=== PATIENT | female | born 1995 | race Caucasian/White ===

== ENCOUNTER 2016-04-02 07:26 | Inpatient (IN) | payer OTHER ==
--- NOTE | 2016-04-02 10:11 | P.HPOB ---
History of Present Illness H&P Date: 04/02/16 Chief Complaint: regular uterine contractions This is a 20-year-old white female 1 para 0 EDC 04/09/2016 at 39 weeks gestation patient presents with regular contractions since early this morning. She denies fluid leakage or vaginal bleeding. Fetus is been active throughout the . Past medical history significant for asthma. Current medications albuterol inhaler as needed, vitamin daily. ALLERGIES include Bactrim DS to which reports a rash, penicillin to which reports a childhood reaction, unknown. Social history patient is , she has never been a smoker, she denies alcohol or drug use. 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 Family history essentially unremarkable. history: Group B strep cultures negative, but type A positive, rubella status immune. One-hour Glucola 96. Gonorrhea and chlamydia cultures, HIV testing, hepatitis B surface antigen, urine screen, VDRL all negative. On exam this is a pleasant white female, 5 foot 3 inches, 165 pounds, vital signs are stable and she is afebrile. The general physical exam is within normal limits. The chest is clear in all smith. The extremities reveal no edema. The cervix is 6 cm dilated, 90% effaced, -1 station. Artificial amniorrhexis reveals clear fluid. heart rate is in the 140s with frequent accelerations, consistent with reactive NST. Uterine contractions are occurring spontaneously approximately every 4-5 minutes apart of moderate intensity. Impression: 39 week intrauterine , active spontaneous labor. All signs reassuring. Plan: Close maternal and surveillance. Consider oxytocin augmentation pending clinical progress. Patient has been counseled as to her options for analgesia. Anticipate normal spontaneous vaginal delivery. Review of Systems All systems: negative Past Medical History Past Medical History: Asthma History of Any Multi-Drug Resistant Organisms: None Reported Past Surgical History: No Surgical Hx Reported Past Psychological History: No Psychological Hx Reported Smoking Status: Never smoker Past Alcohol Use History: None Reported Past Drug Use History: None Reported Medications and Allergies Home Medications and Allergies Comment(s): albuterol inhaler prn Home Medications Medication Instructions Recorded Confirmed Type [id number] Acid 1 cap PO DAILY 04/02/16 04/02/16 History [-U Capsule] Allergies Allergy/AdvReac Type Severity Reaction Status Date / Time Penicillins Allergy Rash/Hives Verified 04/02/16 07:42 sulfamethoxazole Allergy Rash/Hives Verified 04/02/16 07:42 [From Bactrim] trimethoprim [From Bactrim] Allergy Rash/Hives Verified 04/02/16 07:42 Exam - Vital Signs Vital signs: Intake and Output 04/01/16 04/02/16 04/02/16 22:59 06:59 14:59 Other: Weight 76.204 kg Patient Weight 04/03/16 06:59 Weight 76.204 kg see dictatation Assessment and Plan Plan: Admit. Close maternal and surveillance. Anticipate . Time with Patient: Less than 30
[2016-04-02] MEDS ORDERED: OXYTOCIN 10 UNIT/ML 1 ML VIAL IM PRN (10:17)
[2016-04-02] MEDS ORDERED: CARBOPROST TROMETHAMINE 250 MCG/ML 1 ML AMP IM PRN (10:17)
[2016-04-02] MEDS ORDERED: TERBUTALINE 1 MG/ML VIAL SQ PRN (10:17)
[2016-04-02] MEDS ORDERED: LIDOCAINE 1% (PF) 10 MG/ML (30 ML SDV) SQ PRN (10:17)
[2016-04-02 10:38] LABS: Basophils % (A) 0 %; CH 30.5; CHCM 33.3; Eosinophils % (A) 0 %; HDW 2.35; Luc # (Auto) 0.19; Luc % (Auto) 1; Lymphocytes # (A) 1.6 k/uL (1.0-4.8); Lymphocytes % (A) 9 %; MCH 29.8 pg (25.0-35.0); MCHC 32.4 g/dL (31.0-37.0); Mean Platelet Volume 10.5; Monocytes # (A) 0.6 k/uL (0-1.0); Monocytes % (A) 4 %; Neutrophils # (A) 15.2 k/uL (1.3-7.7); Neutrophils % (A) 86 %; RBC 4.35 m/uL (3.80-5.40); RDW 13.4 % (11.5-15.5); WBC 17.7 k/uL (3.8-10.6); WBC (Perox) 17.75
[2016-04-02 11:48] VITALS: BMI 29.2
[2016-04-02] MEDS ORDERED: diphenhydrAMINE ELIXIR 25 MG/10 ML CUP PO PRN (12:32)
[2016-04-02] MEDS ORDERED: diphenhydrAMINE 25 MG CAP PO PRN (12:32)
[2016-04-02] MEDS ORDERED: HYDROCORTISONE 2.5% RECTAL CREAM 30 GM TUBE RECTAL PRN (12:32)
[2016-04-02] MEDS ORDERED: diphenhydrAMINE 50 MG/ML 1 ML VIAL IVP PRN ×2 (12:32)
[2016-04-02] MEDS ORDERED: BENZOCAINE/MENTHOL SPRAY 1 GM/SPRAY AEROSOL TOPICAL PRN (12:32)
[2016-04-02] MEDS ORDERED: diphenhydrAMINE 50 MG CAP PO PRN (12:32)
[2016-04-02] MEDS ORDERED: ZOLPIDEM 5 MG TAB PO PRN (12:32)
[2016-04-02] MEDS ORDERED: SIMETHICONE 80 MG CHEWABLE PO PRN (12:32)
[2016-04-02] MEDS ORDERED: IBUPROFEN 600 MG TAB PO PRN (12:32)
[2016-04-02] MEDS ORDERED: WITCH HAZEL 1 EACH MED..PAD TOPICAL PRN (12:32)
[2016-04-02] MEDS ORDERED: LANOLIN CREAM 5 GM TUBE TOPICAL PRN (12:32)
--- NOTE | 2016-04-02 12:32 | P.PROBDLV ---
Vaginal Delivery Note - . Vaginal Delivery Note: This is a 20-year-old white female 1 para 0 EDC 04/09/2016 at 39 weeks gestation. Patient presented in early spontaneous labor earlier today. Artificial amniorrhexis revealed clear fluid. is unremarkable, rubella status immune, please see my dictated history and physical for details. Patient progressed well through the first stage of labor. She was offered but declined any analgesia. She became completely dilated at 1136 hrs. and began the second stage of labor at that time. Different maternal positions were employed in the second phase of labor for occasional runs of decelerations. Excellent progress was made. Oxygen was placed per facemask. Ultimately the perineal body was prepped and draped in the usual sterile fashion. With excellent maternal effort the infant's head delivered occiput anterior and he restituted accordingly. There was no nuchal cord noted. The oropharynx, nasopharynx, and external nares were all bulb suctioned on the perineal body. The left or anterior shoulder was gently delivered from underneath the pubic symphysis. Patient was officially delivered of a liveborn male infant at 1211 hrs. scores were 9 and 9 at one and 5 minutes respectively. Infant weighed 3470 g, or 7 lbs. 11 oz., length was 21.5 inches. The placenta delivered spontaneously, it was inspected and noted to be intact with trivascular cord at 1214 hrs. Uterus was massaged, firm and in the midline. Inspection of the cervix, vagina , perineum and periurethral areas along with perirectal areas revealed a small right labial laceration. This is injected with lidocaine and repaired in the usual fashion using 3-0 Vicryl suture in a running manner. Estimated blood loss 350 mL's. Patient and family were allowed to begin the bonding experience in the LDR. They are requesting circumcision further infant son.
[2016-04-02] MEDS: OXYTOCIN 30 UNITS/500 ML NS 30 UNIT in SALINE 1 500ML.BAG IV SCH ×3 (12:36→21:22)
[2016-04-02] MEDS: LACTATED RINGERS 1,000 ML IV SCH ×4 (12:36→21:20)
[2016-04-02] MEDS: Acetaminophen-Codeine 300-30mg TAB PO PRN ×2 (14:48→17:55)
[2016-04-02 15:04] LABS: CH 30.5; CHCM 33.1; HCT 32.9 % (34.0-46.0); HDW 2.36; HGB 10.7 gm/dL (11.4-16.0); MCHC 32.5 g/dL (31.0-37.0); MCV 92.4 fL (80.0-100.0); Mean Platelet Volume 10.2; RBC 3.56 m/uL (3.80-5.40); RDW 13.6 % (11.5-15.5); WBC (Perox) 38.29
[2016-04-02] MEDS ORDERED: BUTORPHANOL 1 MG/ML 1 ML VIAL IV PRN (15:07)
[2016-04-02 15:13] LABS: WBC 35.7 k/uL (3.8-10.6)
[2016-04-02] MEDS: METHYLERGONOVINE 0.2 MG/ML 1 ML AMP IM PRN (15:16)
[2016-04-02 15:21] LABS: Add Differential Manual Differential
[2016-04-02 15:24] LABS: Manual Review Performed; Nucleated Red Blood Cells 0 /100 WBC (0-0); RBC Morphology Normal; Total Cells Counted 200
[2016-04-02] MEDS ORDERED: KETAMINE 10 MG/ML 20 ML VIAL ONE (15:31)
[2016-04-02] MEDS ORDERED: MIDAZOLAM 2 MG/2 ML VIAL ONE (15:31)
--- NOTE | 2016-04-02 16:11 | P.PCN ---
Date of Procedure: 04/02/16 Preoperative Diagnosis: bleeding Postoperative Diagnosis: Retained products of conception, left vaginal sidewall laceration. Procedure(s) Performed: Examination under anesthesia, manual exploration of the uterus, repair left lateral vaginal laceration Surgeon: Lovely Kennedy Estimated Blood Loss (ml): 1,200 IV fluids (ml): 1,000 Urine output (ml): 20 Pathology: other (Retained products of conception) Condition: stable Disposition: observation Description of Procedure: I was called to the bedside by attending nurses for increased vaginal bleeding after delivery. At the bedside, manual exploration revealed a small cotyledon of placenta and the uterus is evacuated for approximately 1000 mL of blood. However, upon inspecting the vaginal vault, I was suspicious of a left vaginal sidewall laceration secondary to continued bleeding. Therefore the decision was made to go back to the operating room for better exposure, sterile technique , and repair. Patient brought to the operating suite. IV pain medications are given per the anesthesia staff. Patient is placed in the dorsal lithotomy position, the perineal body is prepped and draped in usual sterile fashion. The bladder is drained for approximately 20 mL of clear yellow urine. With better exposure, there is indeed a high left vaginal sidewall laceration identified. 3-0 Vicryl sutures used in a running locking fashion to repair this defect. Uterus is once again explored and noted to be empty of any remaining blood clots or tissue. Patient tolerates the procedure well. 2 g of Ancef were given. Patient is brought back to the recovery area in stable condition with blood pressure 90/45, pulse 120. All sponge needle and enhancement counts are correct. Hemoglobin will be repeated in the morning. Hemoglobin postdelivery after the 1000 mL of the evacuation was 10.7.
[2016-04-02 18:40] LABS: Basophils % (A) 0 %; CH 29.9; CHCM 31.2; Eosinophils % (A) 0 %; HDW 2.39; Hypochromasia Slight; Luc % (Auto) 1; Lymphocytes # (A) 1.5 k/uL (1.0-4.8); Lymphocytes % (A) 4 %; MCH 30.2 pg (25.0-35.0); MCHC 31.5 g/dL (31.0-37.0); MCV 96.1 fL (80.0-100.0); Mean Platelet Volume 9.8; Monocytes # (A) 0.8 k/uL (0-1.0); Monocytes % (A) 2 %; Neutrophils # (A) 35.9 k/uL (1.3-7.7); Neutrophils % (A) 93 %; RBC 2.29 m/uL (3.80-5.40); RDW 13.5 % (11.5-15.5); WBC (Perox) 41.81
[2016-04-02 18:44] LABS: WBC 38.6 k/uL (3.8-10.6)
[2016-04-02 18:45] LABS: HGB 6.9 gm/dL (11.4-16.0)
[2016-04-02 18:52] LABS: ALT 47 U/L (9-52); AST 48 U/L (14-36); Alkaline Phosphatase 104 U/L (38-126); Anion Gap 11 mmol/L; Blood Urea Nitrogen 14 mg/dL (7-17); Calcium 8.2 mg/dL (8.4-10.2); Carbon Dioxide 15 mmol/L (22-30); Chloride 108 mmol/L (98-107); Glucose 195 mg/dL (74-99); Non-African American GFR(MDRD) >60 (>60 ml/min/1.73 sqM); Potassium 4.5 mmol/L (3.5-5.1); Sodium 134 mmol/L (137-145); Total Bilirubin 0.2 mg/dL (0.2-1.3); Total Protein 4.4 g/dL (6.3-8.2)
[2016-04-02] MEDS ORDERED: LACTATED RINGERS 1,000 ML IV ONE (19:15)
--- NOTE | 2016-04-02 19:15 | P.PN ---
Subjective Principal diagnosis: Called to the bedside, patient passed out when trying to sit up. Objective - Vital Signs Vital signs: Vital Signs Temp 97.9 F 04/02/16 13:31 Pulse 131 H 04/02/16 18:45 Resp 20 04/02/16 18:45 BP 107/54 04/02/16 18:45 Pulse Ox Intake & Output 04/02/16 04/02/16 04/03/16 06:59 18:59 06:59 Intake Total 1000 Output Total 350 Balance 650 Weight 74.843 kg Intake: IV 1000 Lactated Ringers 1,000 ml 1000 @ 125 mls/hr IV .Q8H ASHWINI Rx#:[id number] Output: Urine 0 Estimated Blood Loss 350 - Constitutional General appearance: Present: average body habitus, cooperative - EENT Eyes: Present: PERRLA ENT: Present: hearing grossly normal - Respiratory Respiratory: bilateral: CTA - Cardiovascular Rhythm: regular - Genitourinary Genitourinary Comment(s): uterus firm, midline, 18-16 week size. Expressed for 200cc clots. No active bleeding. - Integumentary Integumentary: Present: pale - Neurologic Neurologic: Present: CNII-XII intact - Musculoskeletal Musculoskeletal: Present: generalized weakness - Psychiatric Psychiatric: Present: A&O x's 3, appropriate affect, intact judgment & insight - Labs CBC & Chem 7: 04/02/16 18:29 04/02/16 18:29 Labs: Abnormal Lab Results - Last 24 Hours (Table) 04/02/16 04/02/16 04/02/16 Range/Units 10:15 14:54 18:29 WBC 17.7 H 35.7 H* 38.6 H* (3.8-10.6) k/uL RBC 3.56 L 2.29 L (3.80-5.40) m/uL Hgb 10.7 L 6.9 L* D (11.4-16.0) gm/dL Hct 32.9 L 22.0 L (34.0-46.0) % Neutrophils # 15.2 H 35.9 H (1.3-7.7) k/uL Neutrophils # (Manual) 33.4 H (1.3-7.7) k/uL Lymphocytes # (Manual) 0.9 L (1.0-4.8) k/uL Monocytes # (Manual) 1.4 H (0-1.0) k/uL Sodium (137-145) mmol/L Chloride (98-107) mmol/L Carbon Dioxide (22-30) mmol/L Glucose (74-99) mg/dL Calcium (8.4-10.2) mg/dL AST (14-36) U/L Total Protein (6.3-8.2) g/dL Albumin (3.5-5.0) g/dL 04/02/16 Range/Units 18:29 WBC (3.8-10.6) k/uL RBC (3.80-5.40) m/uL Hgb (11.4-16.0) gm/dL Hct (34.0-46.0) % Neutrophils # (1.3-7.7) k/uL Neutrophils # (Manual) (1.3-7.7) k/uL Lymphocytes # (Manual) (1.0-4.8) k/uL Monocytes # (Manual) (0-1.0) k/uL Sodium 134 L (137-145) mmol/L Chloride 108 H (98-107) mmol/L Carbon Dioxide 15 L (22-30) mmol/L Glucose 195 H (74-99) mg/dL Calcium 8.2 L (8.4-10.2) mg/dL AST 48 H (14-36) U/L Total Protein 4.4 L (6.3-8.2) g/dL Albumin 2.1 L (3.5-5.0) g/dL Assessment and Plan Plan: Hypovolemia, symptomatic. Discussed with pt and family, will given 2 units PRBC , will check D-dimer, fibrinogen, PT, PTT, continue aggressive fluid replacement , place stephenson for better I's and O's. Discussed with anesthesia, present.
[2016-04-02 19:47] LABS: INR 1.1 (<1.1); Prothrombin Time 10.7 sec (9.0-12.0)
[2016-04-02 19:48] LABS: Partial Thromboplastin Time 25.8 sec (22.0-30.0)
[2016-04-02] MEDS: KETOROLAC 30 MG/ML 1 ML VIAL IVP PRN (20:30)
[2016-04-02] MEDS: SENNOSIDES-DOCUSATE SODIUM 1 EACH TAB PO SCH (21:19)
[2016-04-02] MEDS ORDERED: ALBUMIN HUMAN 5% 500 ML in EMPTY BAG 1 BAG IVPB STA (22:17)
[2016-04-02] MEDS ORDERED: NALOXONE 0.4 MG/ML 1 ML VIAL IV PRN (23:07)
[2016-04-02] MEDS ORDERED: SODIUM CHLORIDE 0.9% 2,000 ML IV ONE (23:16)
[2016-04-02 23:24] LABS: Glucose,Whole Blood 172 mg/dL (75-99)
[2016-04-03] MEDS ORDERED: KETOROLAC 30 MG/ML 1 ML VIAL IVP SCH
[2016-04-03] MEDS: Acetaminophen-Codeine 300-30mg TAB PO PRN (00:30)
[2016-04-03] MEDS: OXYTOCIN 30 UNITS/500 ML NS 30 UNIT in SALINE 1 500ML.BAG IV SCH ×5 (01:07→15:31)
[2016-04-03 02:18] LABS: Appearance,Urine Cloudy (Clear); Bilirubin,Urine Negative (Negative); Glucose,Urine (UA) Trace (Negative); Granular Casts,Urine 14 /lpf (0); Ketones,Urine Trace (Negative); Leukocyte Esterase,Urine Negative (Negative); Mucus,Urine Rare /hpf; Nitrite,Urine Negative (Negative); Particle Count 7658; Protein,Urine 1+ (Negative); RBC,Urine >182 /hpf (0-5); Specific Gravity,Urine 1.025 (1.001-1.035); Squamous Epithelial Cell,Urine <1 /hpf (0-4); UA Billing (MACRO vs. MICRO) MICRO; Urobilinogen,Urine <2.0 mg/dL (<2.0); WBC,Urine 88 /hpf (0-5)
[2016-04-03] MEDS: KETOROLAC 30 MG/ML 1 ML VIAL IVP PRN (03:19)
[2016-04-03 04:59] LABS: Basophils % (A) 0 %; CH 31.9; CHCM 34.9; Eosinophils % (A) 0 %; HCT 21.7 % (34.0-46.0); HDW 2.91; HGB 7.4 gm/dL (11.4-16.0); Luc # (Auto) 0.31; Luc % (Auto) 1; Lymphocytes % (A) 9 %; MCH 31.5 pg (25.0-35.0); MCHC 34.2 g/dL (31.0-37.0); Mean Platelet Volume 9.4; Monocytes # (A) 1.5 k/uL (0-1.0); Monocytes % (A) 7 %; Neutrophils # (A) 18.2 k/uL (1.3-7.7); Neutrophils % (A) 83 %; RBC 2.36 m/uL (3.80-5.40); RDW 14.3 % (11.5-15.5)
[2016-04-03 05:12] LABS: Anion Gap 6 mmol/L; Blood Urea Nitrogen 16 mg/dL (7-17); Calcium 7.3 mg/dL (8.4-10.2); Carbon Dioxide 18 mmol/L (22-30); Chloride 110 mmol/L (98-107); Glucose 101 mg/dL (74-99); Magnesium 1.3 mg/dL (1.6-2.3); Non-African American GFR(MDRD) >60 (>60 ml/min/1.73 sqM); Phosphorous 3.3 mg/dL (2.5-4.5); Potassium 5.1 mmol/L (3.5-5.1); Sodium 134 mmol/L (137-145)
[2016-04-03 05:28] LABS: Manual Review Performed
[2016-04-03] MEDS ORDERED: Magnesium Replacement Protocol 1 EACH MISC MISCELLANE PRN (06:46)
[2016-04-03 07:36] LABS: INR 1.2 (<1.1); Partial Thromboplastin Time 31.3 sec (22.0-30.0); Prothrombin Time 11.5 sec (9.0-12.0)
--- NOTE | 2016-04-03 07:55 | US ---
EXAMINATION TYPE: US pelvic complete DATE OF EXAM: 04/03/2016 7:36 AM COMPARISON: NONE CLINICAL HISTORY: Retained Products. Full term vaginal delivery at 39 weeks on 04/02/16, pt having heav y vaginal bleeding with clots, currently in ICU TECHNIQUE: Transabdominal (TA) EXAM MEASUREMENTS: Uterus: 24.8 x 7.9 x 12.1 cm Endometrial Stripe: Normal endometrial measurement not visible Right Ovary: 2.5 x 1.6 x 2.1 cm Findings: 1. Uterus: Enlarged, post uterus/ two large collections within uterus 1)- cystic collection a t body of uterus= 13.9 x 5.7 x 7.9 cm and 2)- solid collection at JOHN= 10.1 x 7.0 x 7.5 cm/ No eviden ce of increased blood flow in these areas to suggest retained products 2. Endometrium: Normal endometrial lining not visualized at this time 3. Right Ovary: wnl 4. Left Ovary: unable to visualize at this time 5. Bilateral Adnexa: wnl 6. Posterior cul-de-sac: wnl Results given to Dr Kennedy at time of exam IMPRESSION: uterus as noted above without definite retained products of conception.
[2016-04-03] MEDS: METHYLERGONOVINE 0.2 MG/ML 1 ML AMP IM PRN (08:07)
[2016-04-03] MEDS: MAGNESIUM SULFATE-D5W PMX 1 GM in DEXTROSE/WATER 1 100ML.BAG IVPB SCH ×3 (08:08→11:17)
--- NOTE | 2016-04-03 08:49 | P.PN ---
Subjective Principal diagnosis: Significant hemorrhage with secondary hypovolemia. Patient is passing flatus. She feels greatly improved. She denies any complaints other than bilateral upper extremity pain and tingling, consistent with history of carpal tunnel syndrome. Objective - Vital Signs Vital signs: Vital Signs Temp 98.3 F 04/03/16 07:30 Pulse 104 H 04/03/16 08:00 Resp 17 04/03/16 08:00 BP 141/51 04/03/16 08:00 Pulse Ox 100 04/03/16 08:00 Intake & Output 04/02/16 04/03/16 04/03/16 18:59 06:59 18:59 Intake Total 1000 7690 490 Output Total 350 945 300 Balance 650 6745 190 Weight 74.843 kg 77.1 kg Intake: IV 1000 4400 250 Albumin Human 5% 500 ml 500 In Empty Bag 1 bag @ 250 mls/hr IVPB ONCE STA Rx#: [id number] Lactated Ringers 1,000 ml 1000 1900 250 @ 125 mls/hr IV .Q8H ASHWINI Rx#:[id number] Sodium Chloride 0.9% 2, 2000 000 ml @ 999 mls/hr IV . Q2H1M ONE Rx#:[id number] Intake, IV Titration 950 Amount Lactated Ringers 1,000 ml 950 @ 999 mls/hr IV .Q1H1M ONE Rx#:[id number] Oral 480 240 Blood Product 1860 Rc As-1 Unit 310 [id number] Rc As-1 Unit 310 [id number] Rc As-1 Unit 310 [id number] Rc As-1 Unit 310 [id number] Output: Urine 0 945 300 Estimated Blood Loss 350 Other: Voiding Method Indwelling Catheter - Exam Fundus firm and in the midline, symmetric, nontender. Approximate 2 cm below the umbilicus. Breasts are not engorged. - Constitutional General appearance: Present: average body habitus, cooperative - EENT Eyes: Present: PERRLA ENT: Present: hearing grossly normal - Neck Neck: Present: normal ROM Thyroid: bilateral: normal size - Respiratory Respiratory: bilateral: CTA - Cardiovascular Rhythm: regular - Gastrointestinal General gastrointestinal: Present: normal bowel sounds - Genitourinary Genitourinary Comment(s): Exam of the labia revealed them to be edematous, no sign of hematoma. Moderate lochia rubra. Uterus is expressed for a blood clot of approximately 400 mL's. - Integumentary Integumentary: Present: normal - Neurologic Neurologic: Present: CNII-XII intact - Psychiatric Psychiatric: Present: A&O x's 3, appropriate affect, intact judgment & insight - Labs CBC & Chem 7: 04/03/16 04:44 04/03/16 04:44 Labs: Abnormal Lab Results - Last 24 Hours (Table) 04/02/16 04/02/16 04/02/16 Range/Units 10:15 14:54 18:29 WBC 17.7 H 35.7 H* 38.6 H* (3.8-10.6) k/uL RBC 3.56 L 2.29 L (3.80-5.40) m/uL Hgb 10.7 L 6.9 L* D (11.4-16.0) gm/dL Hct 32.9 L 22.0 L (34.0-46.0) % Plt Count (150-450) k/uL Neutrophils # 15.2 H 35.9 H (1.3-7.7) k/uL Neutrophils # (Manual) 33.4 H (1.3-7.7) k/uL Lymphocytes # (Manual) 0.9 L (1.0-4.8) k/uL Monocytes # (0-1.0) k/uL Monocytes # (Manual) 1.4 H (0-1.0) k/uL APTT (22.0-30.0) sec D-Dimer (<0.60) mg/L FEU Sodium (137-145) mmol/L Chloride (98-107) mmol/L Carbon Dioxide (22-30) mmol/L Glucose (74-99) mg/dL POC Glucose (mg/dL) (75-99) mg/dL Calcium (8.4-10.2) mg/dL Magnesium (1.6-2.3) mg/dL AST (14-36) U/L Total Protein (6.3-8.2) g/dL Albumin (3.5-5.0) g/dL Urine Appearance (Clear) Urine Protein (Negative) Urine Glucose (UA) (Negative) Urine Ketones (Negative) Urine Blood (Negative) Urine RBC (0-5) /hpf Urine WBC (0-5) /hpf Hyaline Casts (0-2) /lpf Urine Mucus (None) /hpf Crossmatch 04/02/16 04/02/16 04/02/16 Range/Units 18:29 18:29 19:18 WBC (3.8-10.6) k/uL RBC (3.80-5.40) m/uL Hgb (11.4-16.0) gm/dL Hct (34.0-46.0) % Plt Count (150-450) k/uL Neutrophils # (1.3-7.7) k/uL Neutrophils # (Manual) (1.3-7.7) k/uL Lymphocytes # (Manual) (1.0-4.8) k/uL Monocytes # (0-1.0) k/uL Monocytes # (Manual) (0-1.0) k/uL APTT (22.0-30.0) sec D-Dimer 2.82 H (<0.60) mg/L FEU Sodium 134 L (137-145) mmol/L Chloride 108 H (98-107) mmol/L Carbon Dioxide 15 L (22-30) mmol/L Glucose 195 H (74-99) mg/dL POC Glucose (mg/dL) (75-99) mg/dL Calcium 8.2 L (8.4-10.2) mg/dL Magnesium (1.6-2.3) mg/dL AST 48 H (14-36) U/L Total Protein 4.4 L (6.3-8.2) g/dL Albumin 2.1 L (3.5-5.0) g/dL Urine Appearance (Clear) Urine Protein (Negative) Urine Glucose (UA) (Negative) Urine Ketones (Negative) Urine Blood (Negative) Urine RBC (0-5) /hpf Urine WBC (0-5) /hpf Hyaline Casts (0-2) /lpf Urine Mucus (None) /hpf Crossmatch See Detail 04/02/16 04/03/16 04/03/16 Range/Units 23:21 00:50 04:44 WBC 22.0 H (3.8-10.6) k/uL RBC 2.36 L (3.80-5.40) m/uL Hgb 7.4 L (11.4-16.0) gm/dL Hct 21.7 L (34.0-46.0) % Plt Count 71 L D (150-450) k/uL Neutrophils # 18.2 H (1.3-7.7) k/uL Neutrophils # (Manual) (1.3-7.7) k/uL Lymphocytes # (Manual) (1.0-4.8) k/uL Monocytes # 1.5 H (0-1.0) k/uL Monocytes # (Manual) (0-1.0) k/uL APTT (22.0-30.0) sec D-Dimer (<0.60) mg/L FEU Sodium (137-145) mmol/L Chloride (98-107) mmol/L Carbon Dioxide (22-30) mmol/L Glucose (74-99) mg/dL POC Glucose (mg/dL) 172 H (75-99) mg/dL Calcium (8.4-10.2) mg/dL Magnesium (1.6-2.3) mg/dL AST (14-36) U/L Total Protein (6.3-8.2) g/dL Albumin (3.5-5.0) g/dL Urine Appearance Cloudy H (Clear) Urine Protein 1+ H (Negative) Urine Glucose (UA) Trace H (Negative) Urine Ketones Trace H (Negative) Urine Blood Large H (Negative) Urine RBC >182 H (0-5) /hpf Urine WBC 88 H (0-5) /hpf Hyaline Casts 18 H (0-2) /lpf Urine Mucus Rare H (None) /hpf Crossmatch 04/03/16 04/03/16 Range/Units 04:44 04:44 WBC (3.8-10.6) k/uL RBC (3.80-5.40) m/uL Hgb (11.4-16.0) gm/dL Hct (34.0-46.0) % Plt Count (150-450) k/uL Neutrophils # (1.3-7.7) k/uL Neutrophils # (Manual) (1.3-7.7) k/uL Lymphocytes # (Manual) (1.0-4.8) k/uL Monocytes # (0-1.0) k/uL Monocytes # (Manual) (0-1.0) k/uL APTT 31.3 H (22.0-30.0) sec D-Dimer 0.99 H (<0.60) mg/L FEU Sodium 134 L (137-145) mmol/L Chloride 110 H (98-107) mmol/L Carbon Dioxide 18 L (22-30) mmol/L Glucose 101 H (74-99) mg/dL POC Glucose (mg/dL) (75-99) mg/dL Calcium 7.3 L (8.4-10.2) mg/dL Magnesium 1.3 L (1.6-2.3) mg/dL AST (14-36) U/L Total Protein (6.3-8.2) g/dL Albumin (3.5-5.0) g/dL Urine Appearance (Clear) Urine Protein (Negative) Urine Glucose (UA) (Negative) Urine Ketones (Negative) Urine Blood (Negative) Urine RBC (0-5) /hpf Urine WBC (0-5) /hpf Hyaline Casts (0-2) /lpf Urine Mucus (None) /hpf Crossmatch Assessment and Plan Plan: 2 additional units of packed red blood cells will be given at this time. Plan is to advance diet later this morning, advance activity. Eventual transfer back to mother baby care unit for continued care. Consideration for 2 units of fresh frozen plasma, we'll discuss further with Dr. Sigala. Methergine IM has been given 1 at this time to aid in uterine tone. Continue close maternal surveillance. Circumcision has been performed. Time with Patient: Greater than 30
--- NOTE | 2016-04-03 09:42 | P.CNPUL ---
History of Present Illness Consult date: 04/03/16 Chief complaint: Hemorrhagic shock History of present illness: 20-year-old young female patient, 39 week of gestation, presented with spontaneous labor. Her was essentially unremarkable. The patient was delivered and following her delivery the patient had increased vaginal bleeding. Dr. Kennedy was called to the scene and the patient had manual expiration and she revealed to cotyledon of placenta and the uterus was evacuated in approximately 1.2 L of blood was lost during the process. Upon this patient of the vaginal vault, there was a left vaginal side wall laceration contributing to the bleeding. The patient was taken to the operating room and she underwent repair under sterile techniques. Postop, the patient went into a shock state with the patient became profoundly tachycardic with a heart rate in the 170s to 180, sinus and her hemoglobin dropped as low as 6.9. She was resuscitated aggressively with IV fluids and pressors. The patient received amira in the form of albumin, 500 ML's and she also received 2 L of 0.9 normal saline and she also received a total of 4 units of packed RBC. Morning hemoglobin is up to 7.4. Hemodynamics is better. She retains a decent blood pressure at this point and her heart rate is dropped down to 105. She is producing urine output and order of 200-300 mL an hour. She did have some residual bleeding from her vaginal and based on that she was again seen by Dr. Ordaz this morning and she had manual evacuation of the clots, given Methergine IM, and a pelvic ultrasound that was done before the manual evacuation showed a large uterus with 2 large collections within the uterus and no evidence of any increased blood flow in the areas to suggest retained products. Normal endometrial lining was seen. The rest of the findings were essentially stable. At this point in time, hemoglobin is at 7.4, platelet count is at 71,000 and the coagulation profile is within normal limits. The patient has no specific complaints. No chest pain. No nausea or vomiting. She is not lactating yet. She has delivered a healthy boy.. Review of Systems As above Past Medical History Past Medical History: Asthma History of Any Multi-Drug Resistant Organisms: None Reported Past Surgical History: No Surgical Hx Reported Past Psychological History: No Psychological Hx Reported Smoking Status: Never smoker Past Alcohol Use History: None Reported Past Drug Use History: None Reported - Past Family History Father Family Medical History: No Reported History Medications and Allergies Home Medications Medication Instructions Recorded Confirmed Type Vdw-Flnl-Dmtau Acid 1 cap PO DAILY 04/02/16 04/02/16 History [-U Capsule] Allergies Allergy/AdvReac Type Severity Reaction Status Date / Time Penicillins Allergy Rash/Hives Verified 04/02/16 07:42 sulfamethoxazole Allergy Rash/Hives Verified 04/02/16 07:42 [From Bactrim] trimethoprim [From Bactrim] Allergy Rash/Hives Verified 04/02/16 07:42 Physical Exam Vitals: Vital Signs Temp Pulse Pulse Resp BP BP Pulse Ox 04/03/16 08:00 104 H 17 141/51 100 04/03/16 07:30 98.3 F 106 H 14 122/44 100 04/03/16 07:00 108 H 14 134/50 100 04/03/16 06:30 102 H 15 129/62 100 04/03/16 06:00 110 H 13 129/62 100 04/03/16 05:30 95 14 154/75 100 04/03/16 05:00 108 H 17 129/54 100 04/03/16 04:30 98.0 F 91 15 135/59 100 04/03/16 04:04 98.6 F 99 14 135/53 100 04/03/16 04:00 98 15 141/65 100 04/03/16 03:30 103 H 17 151/67 100 04/03/16 03:00 124 H 19 138/68 100 04/03/16 02:30 137 H 19 128/55 100 04/03/16 02:25 97.5 F L 122 H 15 131/59 100 04/03/16 02:15 98.5 F 119 H 16 128/55 100 04/03/16 02:00 117 H 19 130/65 100 04/03/16 01:30 136 H 30 H 120/82 100 04/03/16 01:29 97.7 F 126 H 16 04/03/16 01:00 97.7 F 127 H 20 115/78 100 04/03/16 00:30 141 H 127/71 100 04/03/16 00:00 147 H 20 137/82 100 04/02/16 23:57 98.2 F 137 H 24 115/78 100 04/02/16 23:30 156 H 20 118/62 100 04/02/16 23:13 98.2 F 141 H 20 04/02/16 23:00 98.3 F 157 H 20 99 04/02/16 22:56 89 L 04/02/16 22:43 98.7 F 162 H 18 113/55 99 04/02/16 22:13 98.7 F 153 H 18 109/55 04/02/16 22:03 98.7 F 155 H 18 111/52 94 L 04/02/16 21:58 98.3 F 146 H 20 137/87 04/02/16 20:59 142 H 18 04/02/16 20:53 97.8 F 144 H 18 94/50 100 04/02/16 20:23 98.1 F 146 H 18 77/40 100 04/02/16 20:13 98.1 F 146 H 18 106/53 99 04/02/16 18:45 129 H 18 111/59 100 04/02/16 18:15 137 H 20 84/53 04/02/16 18:00 122 H 18 84/51 100 04/02/16 17:15 105 H 18 95/46 100 04/02/16 17:00 95.2 F L 105 H 18 86/52 100 04/02/16 16:45 113 H 18 81/51 99 04/02/16 16:30 114 H 18 84/50 98 04/02/16 16:15 124 H 20 04/02/16 16:00 95.5 F L 118 H 18 88/53 97 04/02/16 14:01 125 H 16 115/64 04/02/16 13:31 97.9 F 108 H 16 127/64 04/02/16 13:16 95 16 129/81 04/02/16 13:01 79 16 130/76 04/02/16 12:46 86 16 129/79 04/02/16 12:31 69 16 128/61 04/02/16 10:15 98.3 F 85 16 138/82 Intake and Output 04/02/16 04/03/16 04/03/16 22:59 06:59 14:59 Intake Total 3160 5530 490 Output Total 150 795 300 Balance 3010 4735 190 Intake: IV 1900 3500 250 Albumin Human 5% 500 ml 500 In Empty Bag 1 bag @ 250 mls/hr IVPB ONCE STA Rx#: [id number] Lactated Ringers 1,000 ml 1900 1000 250 @ 125 mls/hr IV .Q8H ASHWINI Rx#:[id number] Sodium Chloride 0.9% 2, 2000 000 ml @ 999 mls/hr IV . Q2H1M ONE Rx#:[id number] Intake, IV Titration 950 Amount Lactated Ringers 1,000 ml 950 @ 999 mls/hr IV .Q1H1M ONE Rx#:[id number] Oral 480 240 Blood Product 310 1550 Rc As-1 Unit 0 310 [id number] Rc As-1 Unit 310 [id number] Rc As-1 Unit 310 [id number] Rc As-1 Unit 310 [id number] Output: Urine 150 795 300 Other: Voiding Method Indwelling Catheter Indwelling Catheter Weight 77.1 kg The patient appeared well nourished and normally developed. Vital signs as documented. Head exam is unremarkable. No scleral icterus or corneal arcus noted. Neck is without jugular venous distension, thyromegaly, or carotid bruits. Carotid upstrokes are brisk bilaterally. Lungs are clear to auscultation and percussion. Cardiac exam reveals the PMI to be normally sized and situated. Rhythm is regular. First and second heart sounds normal. No murmurs, rubs or gallops. Abdominal exam reveals normal bowel sounds, no masses , no organomegaly and no aortic enlargement. Extremities are nonedematous and both femoral and pedal pulses are normal. For the pelvic exam please refer to the examination that was done by Dr. Kennedy Results - Laboratory Findings CBC and BMP: 04/03/16 04:44 04/03/16 04:44 PT/INR, D-dimer PT 11.5 sec (9.0-12.0) 04/03/16 04:44 INR 1.2 (<1.1) 04/03/16 04:44 D-Dimer 0.99 mg/L FEU (<0.60) H 04/03/16 04:44 Abnormal lab findings: Abnormal Labs 04/02/16 04/02/16 04/02/16 10:15 14:54 18:29 WBC 17.7 H 35.7 H* 38.6 H* RBC 3.56 L 2.29 L Hgb 10.7 L 6.9 L* D Hct 32.9 L 22.0 L Plt Count Neutrophils # 15.2 H 35.9 H Neutrophils # (Manual) 33.4 H Lymphocytes # (Manual) 0.9 L Monocytes # Monocytes # (Manual) 1.4 H APTT D-Dimer Sodium Chloride Carbon Dioxide Glucose POC Glucose (mg/dL) Calcium Magnesium AST Total Protein Albumin Urine Appearance Urine Protein Urine Glucose (UA) Urine Ketones Urine Blood Urine RBC Urine WBC Hyaline Casts Urine Mucus Crossmatch 04/02/16 04/02/16 04/02/16 18:29 18:29 19:18 WBC RBC Hgb Hct Plt Count Neutrophils # Neutrophils # (Manual) Lymphocytes # (Manual) Monocytes # Monocytes # (Manual) APTT D-Dimer 2.82 H Sodium 134 L Chloride 108 H Carbon Dioxide 15 L Glucose 195 H POC Glucose (mg/dL) Calcium 8.2 L Magnesium AST 48 H Total Protein 4.4 L Albumin 2.1 L Urine Appearance Urine Protein Urine Glucose (UA) Urine Ketones Urine Blood Urine RBC Urine WBC Hyaline Casts Urine Mucus Crossmatch See Detail 04/02/16 04/03/16 04/03/16 23:21 00:50 04:44 WBC 22.0 H RBC 2.36 L Hgb 7.4 L Hct 21.7 L Plt Count 71 L D Neutrophils # 18.2 H Neutrophils # (Manual) Lymphocytes # (Manual) Monocytes # 1.5 H Monocytes # (Manual) APTT D-Dimer Sodium Chloride Carbon Dioxide Glucose POC Glucose (mg/dL) 172 H Calcium Magnesium AST Total Protein Albumin Urine Appearance Cloudy H Urine Protein 1+ H Urine Glucose (UA) Trace H Urine Ketones Trace H Urine Blood Large H Urine RBC >182 H Urine WBC 88 H Hyaline Casts 18 H Urine Mucus Rare H Crossmatch 04/03/16 04/03/16 04:44 04:44 WBC RBC Hgb Hct Plt Count Neutrophils # Neutrophils # (Manual) Lymphocytes # (Manual) Monocytes # Monocytes # (Manual) APTT 31.3 H D-Dimer 0.99 H Sodium 134 L Chloride 110 H Carbon Dioxide 18 L Glucose 101 H POC Glucose (mg/dL) Calcium 7.3 L Magnesium 1.3 L AST Total Protein Albumin Urine Appearance Urine Protein Urine Glucose (UA) Urine Ketones Urine Blood Urine RBC Urine WBC Hyaline Casts Urine Mucus Crossmatch Assessment and Plan Plan: Assessment 1 bleeding with retained products of conception and left vaginal wall laceration, status post manual expiration of the uterus and removal of retained products in addition to repair of laceration of a left vaginal wall. 2 hemorrhagic shock, stable for now postresuscitation with IV fluids and blood products 3 profound anemia secondary to above, improving and the hemoglobin is up to 7.4 4 evolving thrombocytopenia, consumptive secondary to massive bleeding. Could be also related to transfusions. Correlation profile is within normal limits. No history of any underlying coagulopathy 5 bronchial asthma Plan The patient is an IV fluids with LR at the rate of 1 25 mL an hour. She is receiving an additional 2 units of packed RBC. I will give her 2 units of fresh frozen plasma admission knowing that there is some ongoing oozing from the vagina. The bleeding has been effectively controlled that there is some minimal blood where the vaginal pads are being replaced every 2 hours. We will repeat his CBC other the blood transfusion if the platelet counts are below 50, 000 we'll give the patient a unit of platelet concentrates in addition. She'll be kept in ICU for today. We'll ask if it's possible for this patient to breast feed and this should help with dosing generation and contraction of the uterus. This will be arranged along with the labor and delivery nurses. The patient has been given Methergine. Will work with [employer] in regards to management and care of this patient.
[2016-04-03] MEDS: SENNOSIDES-DOCUSATE SODIUM 1 EACH TAB PO SCH ×2 (11:19→20:20)
[2016-04-03] MEDS: ACETAMINOPHEN TAB 325 MG TAB PO PRN (13:43)
[2016-04-03 16:06] LABS: CH 31.8; CHCM 35.8; HCT 27.2 % (34.0-46.0); HDW 3.26; MCHC 34.5 g/dL (31.0-37.0); MCV 89.6 fL (80.0-100.0); Mean Platelet Volume 9.7; RBC 3.04 m/uL (3.80-5.40); RDW 14.1 % (11.5-15.5); WBC 22.2 k/uL (3.8-10.6)
[2016-04-03 16:15] LABS: HGB 9.4 gm/dL (11.4-16.0)
[2016-04-03 16:21] LABS: Partial Thromboplastin Time 26.3 sec (22.0-30.0); Prothrombin Time 10.3 sec (9.0-12.0)
[2016-04-03] MEDS: LACTATED RINGERS 1,000 ML IV SCH (20:21)
[2016-04-04] MEDS: LACTATED RINGERS 1,000 ML IV SCH ×2 (04:33→10:59)
[2016-04-04 04:54] LABS: Basophils % (A) 0 %; CH 31.6; CHCM 35.3; Eosinophils % (A) 0 %; HCT 23.6 % (34.0-46.0); HDW 3.33; HGB 8.1 gm/dL (11.4-16.0); Luc % (Auto) 1; Lymphocytes % (A) 11 %; MCH 31.2 pg (25.0-35.0); MCHC 34.5 g/dL (31.0-37.0); MCV 90.3 fL (80.0-100.0); Mean Platelet Volume 8.6; Monocytes # (A) 0.7 k/uL (0-1.0); Monocytes % (A) 4 %; Neutrophils # (A) 15.6 k/uL (1.3-7.7); Neutrophils % (A) 84 %; RBC 2.62 m/uL (3.80-5.40); RDW 14.4 % (11.5-15.5); WBC 18.5 k/uL (3.8-10.6)
[2016-04-04 05:15] LABS: Anion Gap 8 mmol/L; Blood Urea Nitrogen 9 mg/dL (7-17); Calcium 7.8 mg/dL (8.4-10.2); Carbon Dioxide 23 mmol/L (22-30); Chloride 110 mmol/L (98-107); Glucose 71 mg/dL (74-99); Magnesium 1.7 mg/dL (1.6-2.3); Non-African American GFR(MDRD) >60 (>60 ml/min/1.73 sqM); Phosphorous 2.8 mg/dL (2.5-4.5); Potassium 3.6 mmol/L (3.5-5.1); Sodium 141 mmol/L (137-145)
[2016-04-04] MEDS ORDERED: Magnesium Replacement Protocol 1 EACH MISC MISCELLANE PRN (05:29)
[2016-04-04] MEDS ORDERED: Potassium Replacement Protocol 1 EACH MISC MISCELLANE PRN (05:29)
[2016-04-04] MEDS ORDERED: POTASSIUM CHLORIDE ER 20 MEQ TAB.ER PO SCH (06:00)
--- NOTE | 2016-04-04 07:55 | P.PN ---
Subjective Principal diagnosis: day #2 Patient is ambulating, passing flatus, has showered, breast-feeding. Denies lightheadedness or dizziness. Scant vaginal flow. Objective - Vital Signs Vital signs: Vital Signs Temp 98.1 F 04/04/16 07:12 Pulse 16 L 04/04/16 07:12 Resp 90 H 04/04/16 07:12 BP 142/56 04/04/16 07:12 Pulse Ox 98 04/04/16 07:00 Intake & Output 04/03/16 04/04/16 04/04/16 18:59 06:59 18:59 Intake Total 2250 1475 439 Output Total 3875 2500 200 Balance -1625 -1025 239 Weight 77.1 kg 68.4 kg Intake: IV 1700 1475 125 Lactated Ringers 1,000 ml 1500 1475 125 @ 125 mls/hr IV .Q8H ASHWINI Rx#:[id number] Magnesium Sulfate-D5w Pmx 200 1 gm In Dextrose/Water 1 100ml.bag @ 100 mls/hr IVPB Q1H ASHWINI Rx#: [id number] Oral 240 Blood Product 310 0 314 Ffp 24 Cpd Unit 0 314 [id number] Ffp 24 Cpd Unit 0 [id number] Rc As-1 Unit 310 [id number] Rc As-1 Unit 0 [id number] Output: Urine 3875 2500 200 Other: Voiding Method Indwelling Catheter Indwelling Catheter - Constitutional General appearance: Present: average body habitus, cooperative - EENT ENT: Present: hearing grossly normal - Neck Neck: Present: normal ROM Thyroid: bilateral: normal size - Respiratory Respiratory: bilateral: CTA - Cardiovascular Rhythm: regular - Gastrointestinal General gastrointestinal: Present: normal bowel sounds - Genitourinary Genitourinary Comment(s): Uterus firm, well below the umbilicus, symmetric and mobile, nontender. Labial edema improved. Scant vaginal flow. - Integumentary Integumentary: Present: normal - Neurologic Neurologic: Present: CNII-XII intact - Musculoskeletal Musculoskeletal: Present: gait normal - Psychiatric Psychiatric: Present: A&O x's 3, appropriate affect, intact judgment & insight - Labs CBC & Chem 7: 04/04/16 04:21 04/04/16 04:21 Labs: Abnormal Lab Results - Last 24 Hours (Table) 04/02/16 04/03/16 04/04/16 Range/Units 18:29 15:51 04:21 WBC 22.2 H 18.5 H (3.8-10.6) k/uL RBC 3.04 L 2.62 L (3.80-5.40) m/uL Hgb 9.4 L D 8.1 L (11.4-16.0) gm/dL Hct 27.2 L 23.6 L (34.0-46.0) % Plt Count 67 L 72 L (150-450) k/uL Neutrophils # 15.6 H (1.3-7.7) k/uL Chloride (98-107) mmol/L Creatinine (0.52-1.04) mg/dL Glucose (74-99) mg/dL Calcium (8.4-10.2) mg/dL Crossmatch See Detail 04/04/16 Range/Units 04:21 WBC (3.8-10.6) k/uL RBC (3.80-5.40) m/uL Hgb (11.4-16.0) gm/dL Hct (34.0-46.0) % Plt Count (150-450) k/uL Neutrophils # (1.3-7.7) k/uL Chloride 110 H (98-107) mmol/L Creatinine 0.50 L (0.52-1.04) mg/dL Glucose 71 L (74-99) mg/dL Calcium 7.8 L (8.4-10.2) mg/dL Crossmatch Assessment and Plan Plan: Continue fresh frozen plasma infusion this morning. Recheck CBC. Discontinue Marcum. Likely transferred back to labor and delivery today, with continued surveillance for an additional 24 hours. Possible discharge home tomorrow. Time with Patient: Less than 30
[2016-04-04] MEDS: MAGNESIUM SULFATE-D5W PMX 1 GM in DEXTROSE/WATER 1 100ML.BAG IVPB SCH ×2 (08:48→10:59)
[2016-04-04] MEDS: SENNOSIDES-DOCUSATE SODIUM 1 EACH TAB PO SCH ×2 (09:05→19:59)
[2016-04-04 10:31] LABS: Basophils % (A) 0 %; CH 31.7; CHCM 35.2; Eosinophils % (A) 0 %; HCT 23.5 % (34.0-46.0); HDW 3.36; HGB 8.1 gm/dL (11.4-16.0); Luc # (Auto) 0.18; Luc % (Auto) 1; Lymphocytes # (A) 1.6 k/uL (1.0-4.8); Lymphocytes % (A) 9 %; MCH 31.4 pg (25.0-35.0); MCHC 34.6 g/dL (31.0-37.0); MCV 90.5 fL (80.0-100.0); Mean Platelet Volume 9.5; Monocytes # (A) 0.6 k/uL (0-1.0); Monocytes % (A) 4 %; Neutrophils # (A) 15.2 k/uL (1.3-7.7); Neutrophils % (A) 86 %; RBC 2.59 m/uL (3.80-5.40); RDW 14.5 % (11.5-15.5); WBC 17.7 k/uL (3.8-10.6); WBC (Perox) 18.62
[2016-04-04] MEDS: OXYTOCIN 30 UNITS/500 ML NS 30 UNIT in SALINE 1 500ML.BAG IV SCH (10:59)
[2016-04-04 13:12] VITALS: RESP 16
[2016-04-04] MEDS: ACETAMINOPHEN TAB 325 MG TAB PO PRN (14:23)
--- NOTE | 2016-04-04 16:26 | P.PN ---
Subjective Principal diagnosis: Acute bleeding secondary to retained products of conception and left vaginal wall laceration. 20-year-old young female patient, 39 week of gestation, presented with spontaneous labor. Her was essentially unremarkable. The patient was delivered and following her delivery the patient had increased vaginal bleeding. Dr. Kennedy was called to the scene and the patient had manual expiration and she revealed to cotyledon of placenta and the uterus was evacuated in approximately 1.2 L of blood was lost during the process. Upon this patient of the vaginal vault, there was a left vaginal side wall laceration contributing to the bleeding. The patient was taken to the operating room and she underwent repair under sterile techniques. Postop, the patient went into a shock state with the patient became profoundly tachycardic with a heart rate in the 170s to 180, sinus and her hemoglobin dropped as low as 6.9. She was resuscitated aggressively with IV fluids and pressors. The patient received amira in the form of albumin, 500 ML's and she also received 2 L of 0.9 normal saline and she also received a total of 4 units of packed RBC. Morning hemoglobin is up to 7.4. Hemodynamics is better. She retains a decent blood pressure at this point and her heart rate is dropped down to 105. She is producing urine output and order of 200-300 mL an hour. She did have some residual bleeding from her vaginal and based on that she was again seen by Dr. Ordaz this morning and she had manual evacuation of the clots, given Methergine IM, and a pelvic ultrasound that was done before the manual evacuation showed a large uterus with 2 large collections within the uterus and no evidence of any increased blood flow in the areas to suggest retained products. Normal endometrial lining was seen. The rest of the findings were essentially stable. At this point in time, hemoglobin is at 7.4, platelet count is at 71,000 and the coagulation profile is within normal limits. The patient has no specific complaints. No chest pain. No nausea or vomiting. She is not lactating yet. She has delivered a healthy boy.. Patient was reevaluated today on 04/04/2016, doing well, hemodynamically stable, and no evidence of active bleeding. Hemoglobin is holding at 8.1 the rest of the labs were noted to be relatively unremarkable. Patient is relatively asymptomatic. No shortness of breath no cough no wheezing no nausea no vomiting and no abdominal pain. Hence we'll make arrangements to transfer the patient out of the ICU to the labor and delivery floor. Objective - Vital Signs Vital signs: Vital Signs Temp 98.4 F 04/04/16 16:00 Pulse 94 04/04/16 16:00 Resp 16 04/04/16 16:00 BP 128/65 04/04/16 16:00 Pulse Ox 96 04/04/16 10:00 Intake & Output 04/03/16 04/04/16 04/04/16 18:59 06:59 18:59 Intake Total 2250 1475 957 Output Total 3875 2500 200 Balance -1625 -1025 757 Weight 77.1 kg 68.4 kg Intake: IV 1700 1475 225 Lactated Ringers 1,000 ml 1500 1475 125 @ 125 mls/hr IV .Q8H ASHWINI Rx#:[id number] Magnesium Sulfate-D5w Pmx 200 100 1 gm In Dextrose/Water 1 100ml.bag @ 100 mls/hr IVPB Q1H ASHWINI Rx#: [id number] Intake, IV Titration 100 Amount Magnesium Sulfate-D5w Pmx 100 1 gm In Dextrose/Water 1 100ml.bag @ 100 mls/hr IVPB Q1H ASHWINI Rx#: [id number] Oral 240 Blood Product 310 0 632 Ffp 24 Cpd Unit 0 314 [id number] Ffp 24 Cpd Unit 318 [id number] Rc As-1 Unit 310 [id number] Rc As-1 Unit 0 [id number] Output: Urine 3875 2500 200 Other: Voiding Method Indwelling Catheter Indwelling Catheter Toilet # Voids 1 # Bowel Movements 1 - Exam Physical Exam: Revealed a 20-year-old in no distress HEENT:[Neck is supple.] [No neck masses.] [No thyromegaly.] [No JVD.] Chest: [Clear throughout, no crackles, no rhonchi, no wheezes.] Cardiac Exam: [Normal S1 and S2, no S3 gallop, no murmur.] Abdomen: [Soft, nontender, no megaly, no rebound, no guarding, normal bowel sounds.] Extremities: [No clubbing, no edema, no cyanosis.] Neurological Exam: [No focal neurologic deficit.] - Labs CBC & Chem 7: 04/04/16 10:19 04/04/16 04:21 Labs: Abnormal Lab Results - Last 24 Hours (Table) 04/04/16 04/04/16 04/04/16 Range/Units 04:21 04:21 10:19 WBC 18.5 H 17.7 H (3.8-10.6) k/uL RBC 2.62 L 2.59 L (3.80-5.40) m/uL Hgb 8.1 L 8.1 L (11.4-16.0) gm/dL Hct 23.6 L 23.5 L (34.0-46.0) % Plt Count 72 L 80 L (150-450) k/uL Neutrophils # 15.6 H 15.2 H (1.3-7.7) k/uL Chloride 110 H (98-107) mmol/L Creatinine 0.50 L (0.52-1.04) mg/dL Glucose 71 L (74-99) mg/dL Calcium 7.8 L (8.4-10.2) mg/dL Assessment and Plan Plan: 1 bleeding with retained products of conception and left vaginal wall laceration, status post manual expiration of the uterus and removal of retained products in addition to repair of laceration of a left vaginal wall. 2 hemorrhagic shock, stable for now postresuscitation with IV fluids and blood products 3 profound anemia secondary to above, improving and the hemoglobin is up to 8.1 4 evolving thrombocytopenia, consumptive secondary to massive bleeding. Could be also related to transfusions. Correlation profile is within normal limits. No history of any underlying coagulopathy 5 bronchial asthma Recommendation: Continue present supportive care measures, patient will be transferred out of the ICU to medical floor. Will follow as needed. Time with Patient: Less than 30
[2016-04-05] MEDS: LACTATED RINGERS 1,000 ML IV SCH ×2 (02:17→02:23)
--- NOTE | 2016-04-05 07:20 | P.DS ---
Providers Date of admission: 04/02/16 09:51 Expected date of discharge: 04/05/16 Attending physician: Lovely Kennedy Consults: 04/02/16 23:06 Consult Physician Stat Consulting Provider: Luke Sigala Consult Reason/Comments: ICU management Do you want consulting provider notified?: Already Contacted Primary care physician: Stated None Hospital Course: This is a 20-year-old white female 1 para 0 EDC 04/09/2016 who presented in early labor at 39 weeks gestation. was unremarkable, group B strep cultures negative, rubella status immune, blood type B positive. Please see my dictated history and physical for details. Patient progressed well through labor and went on to deliver a liveborn male infant with scores of 9 and 9 at one and 5 minutes respectively. Infant weighed 7 lbs. 11 oz. or 3490 g. There was a right labial laceration that was repaired at the bedside. Estimated blood loss at the time of vaginal delivery 350 mL's. Shortly after delivery, a large amount of vaginal bleeding was noted. Examination at the bedside was consistent with a small placental cotyledon on, retained products of conception. This was removed manually at the bedside. Pitocin was given and uterine massage was also performed. However, despite these measures, vaginal bleeding remained brisk. The decision was made to go back to the operating room for examination under anesthesia. In the OR there was a high left vaginal sidewall laceration identified. This was repaired with a running locking stitch of Vicryl. Reapproximation was excellent. Estimated blood loss in the operating room approximately 1000 mL's. Please see separately dictated note for details. 2 g of Ancef were given. Back at the bedside, patient became tachycardic with a pulse in the 150s. Stat CBC revealed a hemoglobin of 6.9. Blood was typed and crossed, however, fluid resuscitation for this hypovolemia with inadequate on our floor. Because of patient's symptomatology, continued tachycardia, and limitations for replacing blood products on our unit, the patient was transferred to the ICU. Here blood products were replaced more vigorously, colloids were given, and patient stabilized nicely. She remained in the ICU for approximately 24 hours to assure stability. Tachycardia resolved, good urine output was then noted. DIC blood work was done and this was within normal limits. Patient was then transferred back to mother baby care and continued observation was performed. At this time she is breast-feeding well, voiding and ambulating without issues, the fundus is firm and in the midline, symmetric, nontender, below the umbilicus. Extremities reveal trace edema. Labia are slightly edematous, greatly improved over the past 24 hours. Her chest is clear. Her heart rate is 80. Her vital signs have remained stable and she has remained afebrile. The infant has been circumcised and is breast-feeding well. Patient is being discharged home this morning in good condition. She will follow-up with me in the office in 2 weeks. She will begin an [id number] iron supplement to aid in anemia. She will use Advil or Motrin as needed for cramping or pain. I have given her prescription for a double electric breast pump. I've asked her to call with any fevers shakes or chills, foul smelling or copious lochia, with the passage of large blood clots, with any pain not alleviated by [id number] products, with any issues breast-feeding, with any lightheadedness or dizziness or indeed with any concerns whatsoever. will follow up with transportation engineer as per recommendations. Patient Condition at Discharge: Good Plan - Discharge Summary Discharge Medication List Tud-Zjsm-Getbc Acid [-U Capsule] 1 cap PO DAILY 04/02/16 [ History] Follow up Appointment(s)/Referral(s): Lovely Kennedy MD [STAFF PHYSICIAN] - 2 Weeks Discharge Disposition: HOME SELF-CARE
[2016-04-05 08:15] VITALS: BP 123/68; PULSE 89; TEMP 98.7
[2016-04-05 09:55] LABS: Anion Gap 9 mmol/L; Blood Urea Nitrogen 11 mg/dL (7-17); Carbon Dioxide 25 mmol/L (22-30); Chloride 107 mmol/L (98-107); Glucose 88 mg/dL (74-99); Magnesium 1.7 mg/dL (1.6-2.3); Non-African American GFR(MDRD) >60 (>60 ml/min/1.73 sqM); Phosphorous 3.4 mg/dL (2.5-4.5); Potassium 4.1 mmol/L (3.5-5.1); Sodium 141 mmol/L (137-145)
[2016-04-05 09:58] LABS: Basophils % (A) 0 %; CH 31.4; CHCM 34.4; Eosinophils # (A) 0.2 k/uL (0-0.7); Eosinophils % (A) 1 %; HCT 25.6 % (34.0-46.0); HDW 3.29; HGB 8.8 gm/dL (11.4-16.0); Luc # (Auto) 0.14; Luc % (Auto) 1; Lymphocytes # (A) 1.7 k/uL (1.0-4.8); Lymphocytes % (A) 11 %; MCH 31.5 pg (25.0-35.0); MCHC 34.2 g/dL (31.0-37.0); MCV 91.9 fL (80.0-100.0); Mean Platelet Volume 8.4; Monocytes # (A) 0.4 k/uL (0-1.0); Monocytes % (A) 3 %; Neutrophils # (A) 13.3 k/uL (1.3-7.7); Neutrophils % (A) 84 %; RBC 2.79 m/uL (3.80-5.40); RDW 14.6 % (11.5-15.5); WBC 15.8 k/uL (3.8-10.6); WBC (Perox) 16.45
== END 2016-04-05 11:42 | disposition home or self-care (01) | DRG 774 ==
LOC: FBPOP 07:26 → 4FBP 09:51 → 6ICU 22:44 → 4FBP 04-04 11:27
PROVIDERS: ADMIT Obstetrics & Gynecology; ATTEND Obstetrics & Gynecology
PROC: 30233N1 Transfusion of Nonautologous Red Blood Cells into Peripheral Vein, Percutaneous Approach (ICD-10-PCS; principal; 2016-04-02 15:35)
PROC: 0UC97ZZ Extirpation of Matter from Uterus, Via Natural or Artificial Opening (ICD-10-PCS; principal; 2016-04-02 15:35)
PROC: 0HQ9XZZ Repair Perineum Skin, External Approach (ICD-10-PCS; principal; 2016-04-02 15:35)
PROC: 10E0XZZ Delivery of Products of Conception, External Approach (ICD-10-PCS; principal; 2016-04-02 15:35)
PROC: 0KQM0ZZ Repair Perineum Muscle, Open Approach (ICD-10-PCS; principal; 2016-04-02 15:35)
PROC: 10907ZC Drainage of Amniotic Fluid, Therapeutic from Products of Conception, Via Natural or Artificial Opening (ICD-10-PCS; principal; 2016-04-02 15:35)
DX: O70.0 First degree perineal laceration during delivery (principal); O72.1 Other immediate postpartum hemorrhage; Z37.0 Single live birth; O75.1 Shock during or following labor and delivery; O71.4 Obstetric high vaginal laceration alone; O99.12 Other diseases of the blood and blood-forming organs and certain disorders involving the immune mechanism complicating childbirth; D69.59 Other secondary thrombocytopenia; D62 Acute posthemorrhagic anemia; E86.1 Hypovolemia; O76 Abnormality in fetal heart rate and rhythm complicating labor and delivery; Z3A.39 39 weeks gestation of pregnancy; Z88.0 Allergy status to penicillin; O99.02 Anemia complicating childbirth; J45.909 Unspecified asthma, uncomplicated; O99.52 Diseases of the respiratory system complicating childbirth; Z88.2 Allergy status to sulfonamides
CPT/HCPCS: 59025; 76856; 80048; 80053; 81001; 82330; 83735; 84100; 85025; 85027; 85379; 85384; 85610; 85730; 86850; 86900; 86901; 86920; 88304; 88307; 99213

== ENCOUNTER → 2016-06-10 | Outpatient (CLI) | payer OTHER ==
--- NOTE | 2016-06-13 08:24 | USB ---
Reason for exam: clinical finding. History: Family history of breast cancer in cousin at age 30. Physical Findings: Nurse Summary: questionable galactocele, leaking milk and clear fluid (nurse kp). US Breast LT Left breast ultrasound includes all four quadrants, the retroareolar region and axilla. Finding demonstrate a 3.9 x 2.1 x 4.8cm oval, cystic, solid, complex lesion, questionable galactocele at 4 o'clock. These results were verbally communicated with the patient and result sheet given to the patient on 06/10/16. ASSESSMENT: Probably benign, BI-RAD 3 RECOMMENDATION: Aspiration of the left breast.
== END | disposition home or self-care (01) ==
LOC: RADUSWWP 10:06
PROVIDERS: ATTEND Surgery
DX: N63 Unspecified lump in breast (principal)

== ENCOUNTER → 2016-06-10 | Day surgery (SDC) | payer OTHER ==
[~2016-06-10] MED LIST: LIDOCAINE 1% INJ 10MG/ML (20 ML MDV) ONE; SODIUM BICARB 4% 5 ML VIAL (0.48 MEQ/ML) ONE
--- NOTE | 2016-06-10 11:39 | USB ---
EXAMINATION TYPE: US breast aspiration single LT DATE OF EXAM ORDERED: 06/10/2016 11:20 AM HISTORY: R92.8 PREV ABN MAMMO. COMPARISON: Previous study dated 06/10/2016. PHYSICIAN SHEATHER: Dr. Whiting TECHNIQUE: The skin was prepped and draped in usual a. 1% buffered Xylocaine was utilized for local anesthesia. Ultrasound guidance was utilized. FINDINGS: The lesion was aspirated for 12 cc of milky fluid, tenderness with blood. The lesion largely resolved. IMPRESSION: GALACTOCELE. Pathology Results: Benign BREAST, FINE NEEDLE ASPIRATE: BLOOD WITH SCATTERED ACUTE INFLAMMATORY CELLS AND MACROPHAGES.-FEATURES SUGGESTIVE OF AN INFLAMMATORY PROCESS. CYTOLOGICALLY MALIGNANT CELLS ARE NOT IDENTIFIED. RECOMMEND CLINICAL AND IMAGING CORRELATION AND FOLLOW UP INDICATED. Recommendation Follow up ultrasound of the left breast in 6 months. YUMIKO
== END ==
LOC: RADUSWWP 10:09
PROVIDERS: ATTEND Surgery
DX: N64.89 Other specified disorders of breast (principal); R92.8 Other abnormal and inconclusive findings on diagnostic imaging of breast; N63 Unspecified lump in breast
CPT/HCPCS: 88108; 88305; 76942; 19000; J2001

== ENCOUNTER 2017-08-04 12:46 | Inpatient (IN) | payer OTHER ==
[2017-08-04] MEDS ORDERED: CARBOPROST TROMETHAMINE 250 MCG/ML 1 ML AMP IM PRN (14:47)
[2017-08-04] MEDS ORDERED: OXYTOCIN 10 UNIT/ML 1 ML VIAL IM PRN (14:47)
[2017-08-04] MEDS ORDERED: LIDOCAINE 1% (PF) 10 MG/ML (30 ML SDV) SQ PRN (14:47)
[2017-08-04] MEDS ORDERED: METHYLERGONOVINE 0.2 MG/ML 1 ML AMP IM PRN (14:47)
[2017-08-04] MEDS ORDERED: TERBUTALINE 1 MG/ML VIAL SQ PRN (14:47)
--- NOTE | 2017-08-04 14:55 | P.HPOB ---
History of Present Illness H&P Date: 08/04/17 Chief Complaint: 39-3/7 weeks, early labor The patient is a 22-year-old 2 para 1001 admitted at 39-3/7 weeks as established by last menstrual period and confirmed by second trimester ultrasound. She is admitted in early active labor having made cervical change to approximately 5+ centimeters. On labor and delivery, all signs are reassuring. Her has been uncomplicated though she carries a history of asthma which has not been problematic during the . She also has a history of a post hemorrhage secondary to retained products/placenta with her first delivery. Group B strep status is negative. Obstetrical history: 2 para 1001 with 1 term vaginal delivery which was complicated in the immediate post delivery phase by retained products of conception or placenta which was removed manually and lead to transfusion per the patient report. Current statistics are listed in history of present illness. EDC of 08/08/2017 was established by last menstrual period and confirmed by second trimester ultrasound. Laboratory workup demonstrates a blood type of A+ with a negative antibody screen. Rubella status is immune. The remainder of the laboratory workup was within normal limits. One hour Glucola was normal and group B strep status is negative. Gynecologic history: Unremarkable with no history of any infections to include STDs. Review of Systems Review of systems is confined to history of present illness. Past Medical History Past Medical History: Asthma History of Any Multi-Drug Resistant Organisms: None Reported Past Surgical History: No Surgical Hx Reported Smoking Status: Never smoker - Past Family History Father Family Medical History: No Reported History Medications and Allergies Home Medications Medication Instructions Recorded Confirmed Type Wft-Iwxu-Antsu Acid 1 cap PO DAILY 04/02/16 08/04/17 History [-U Capsule] Allergies Allergy/AdvReac Type Severity Reaction Status Date / Time Penicillins Allergy Rash/Hives Verified 08/04/17 12:47 sulfamethoxazole Allergy Rash/Hives Verified 08/04/17 12:47 [From Bactrim] trimethoprim [From Bactrim] Allergy Rash/Hives Verified 08/04/17 12:47 Exam - Vital Signs Vital signs: Intake and Output 08/03/17 08/04/17 08/04/17 22:59 06:59 14:59 Other: Weight 77.111 kg In general, this is a well-developed, well-nourished white female in no acute distress. Her heart has a regular rhythm and rate without murmur. Her lungs are clear to auscultation bilaterally in all smith. Her abdomen is gravid, nondistended, has normal active bowel sounds, is soft, nontender, and without any palpable masses aside from uterine fundus. Her extremities are without any cyanosis, clubbing, or edema and are nontender to palpation bilaterally. Digital cervical examination demonstrates her cervix to be approximately 5-6 cm dilated, 70% effaced, with the vertex in presentation at -2 station. Artificial rupture of membranes is carried out demonstrating clear fluid. Assessment and Plan (1) Active labor at term Current Visit: Yes Status: Acute Code(s): CQY4010 - SNOMED Code(s): 65006551 Plan: The patient is admitted for active management of labor. She has undergone artificial rupture of membranes. She'll have close maternal and surveillance and expectant management will be practiced. She is a good candidate for either IV or epidural analgesia, whichever she may choose.
[2017-08-04 14:57] VITALS: RESP 16
[2017-08-04 15:04] LABS: Basophils % (A) 0 %; Eosinophils % (A) 0 %; HGB 13.4 gm/dL (11.4-16.0); Lymphocytes # (A) 1.7 k/uL (1.0-4.8); Lymphocytes % (A) 12 %; MCH 29.9 pg (25.0-35.0); MCHC 33.5 g/dL (31.0-37.0); MCV 89.3 fL (80.0-100.0); Mean Platelet Volume 8.6; Monocytes # (A) 0.5 k/uL (0-1.0); Monocytes % (A) 4 %; Neutrophils # (A) 12.4 k/uL (1.3-7.7); Neutrophils % (A) 83 %; Platelet Count 201 k/uL (150-450); RBC 4.48 m/uL (3.80-5.40); RDW 14.3 % (11.5-15.5); WBC 14.9 k/uL (3.8-10.6)
[2017-08-04 15:05] VITALS: BMI 29.2
[2017-08-04] MEDS: LACTATED RINGERS 1,000 ML IV SCH (16:12)
[2017-08-04] MEDS ORDERED: diphenhydrAMINE 50 MG/ML 1 ML VIAL IVP PRN ×2 (16:43)
[2017-08-04] MEDS ORDERED: BENZOCAINE/MENTHOL SPRAY 1 GM/SPRAY AEROSOL TOPICAL PRN (16:43)
[2017-08-04] MEDS ORDERED: HYDROCORTISONE 2.5% RECTAL CREAM 30 GM TUBE RECTAL PRN (16:43)
[2017-08-04] MEDS ORDERED: LANOLIN CREAM 5 GM TUBE TOPICAL PRN (16:43)
[2017-08-04] MEDS ORDERED: HYDROcodone/APAP 5-325MG 1 EACH TAB PO PRN (16:43)
[2017-08-04] MEDS ORDERED: ZOLPIDEM 5 MG TAB PO PRN (16:43)
[2017-08-04] MEDS ORDERED: diphenhydrAMINE 25 MG CAP PO PRN (16:43)
[2017-08-04] MEDS ORDERED: diphenhydrAMINE 50 MG CAP PO PRN (16:43)
[2017-08-04] MEDS ORDERED: SIMETHICONE 80 MG CHEWABLE PO PRN (16:43)
[2017-08-04] MEDS ORDERED: ACETAMINOPHEN TAB 325 MG TAB PO PRN (16:43)
[2017-08-04] MEDS ORDERED: WITCH HAZEL 1 EACH MED..PAD TOPICAL PRN (16:43)
[2017-08-04] MEDS ORDERED: OXYTOCIN 20 UNITS/1000 ML NS 1,000 ML IV SCH ×2 (16:45)
--- NOTE | 2017-08-04 16:48 | P.PROBDLV ---
Vaginal Delivery Note - . Vaginal Delivery Note: The patient is a 22-year-old 2 para 1001 admitted at 39-3/7 weeks by good dating parameters. She is admitted in early labor with all signs reassuring. Her has been uncomplicated though she carries a history of previous retained placenta at her first delivery requiring D&C and subsequent transfusion. On labor and delivery, she had artificial rupture of membranes carried out demonstrating clear fluid. She was making good progress through the active phase of labor and I was called to the hospital at 7 cm of dilation. Upon presentation to the floor, the patient had precipitously delivered approximately 2 minutes prior to my arrival. She delivered a viable 7 lbs. 6 oz. baby girl with Apgars of 9 at 1 minute and 9 at 5 minutes delivered in the occiput anterior position. The placenta was delivered spontaneously, intact, and grossly normal with a grossly normal three-vessel cord inserted approximate 4-5 cm from the margin of the placental disc. Careful inspection of the placenta and membranes demonstrated all cotyledons to be present and the likelihood of retained products being minimal. There were no lacerations of the perineum, vagina, or cervix. Estimated blood loss for the entire case was 200 mL. The only complication was the precipitous nature of the delivery which was otherwise uncomplicated. All sponge, instrument, and needle counts were correct. Both mother and infant are resting comfortably in recovery. At this time, there is minimal vaginal bleeding ongoing with the use of the Pitocin per protocol. Methergine is available should it become necessary.
[2017-08-04] MEDS: IBUPROFEN 600 MG TAB PO PRN (16:53)
[2017-08-04] MEDS: METHYLERGONOVINE 0.2 MG TAB PO SCH (22:31)
[2017-08-05] MEDS: SENNOSIDES-DOCUSATE SODIUM 1 EACH TAB PO SCH ×2 (00:52→08:12)
[2017-08-05] MEDS: LACTATED RINGERS 1,000 ML IV SCH (01:25)
[2017-08-05] MEDS: IBUPROFEN 600 MG TAB PO PRN ×2 (01:53→14:39)
[2017-08-05 07:56] LABS: HCT 35.7 % (34.0-46.0); HGB 12.1 gm/dL (11.4-16.0); MCH 30.3 pg (25.0-35.0); MCHC 33.9 g/dL (31.0-37.0); MCV 89.4 fL (80.0-100.0); Mean Platelet Volume 8.9; Platelet Count 190 k/uL (150-450); RBC 3.99 m/uL (3.80-5.40); RDW 14.3 % (11.5-15.5); WBC 19.5 k/uL (3.8-10.6)
[2017-08-05] MEDS: METHYLERGONOVINE 0.2 MG TAB PO SCH ×2 (08:51→16:43)
--- NOTE | 2017-08-05 10:11 | P.DS ---
Providers Date of admission: 08/04/17 14:13 Expected date of discharge: 08/05/17 Attending physician: Lovely Kennedy - Discharge Diagnosis(es) (1) Active labor at term Current Visit: Yes Status: Acute (2) Normal spontaneous vaginal delivery Current Visit: Yes Status: Acute Hospital Course: The patient is a 22-year-old 2 para 1001 admitted at 39-3/7 weeks by good dating parameters. She was admitted in early active labor with all signs reassuring. Her was uncomplicated though she had a history of previous hemorrhage secondary to retained placenta and had significant concerns regarding the possibility of this occurring again. On labor and delivery, she had artificial rupture of membranes carried out demonstrating clear fluid. She made fairly rapid progress and then progressed from 7 to complete and delivered within minutes. She precipitously delivered in my absence a viable 7 lbs. 6 oz. baby girl with Apgars of 9 at 1 minute and 9 at 5 minutes. There was careful examination of the placenta following delivery and it was entirely intact. Nevertheless, she did have some initial issues with uterine atony which required evacuating some clot from the cervix and the addition of Methergine to the standard Pitocin regimen. Remainder of her course was entirely unremarkable with vital signs remaining stable and her temperature was afebrile throughout. Her bleeding remained well controlled following interventions noted above and she was deemed stable for discharge on day #1 to follow-up in the office in 6 weeks' time routinely. Discharge instructions included calling for any significantly increased bleeding or foul-smelling lochia, significantly increased fever or abdominal pain, perineal complaints, breast complaints, or anything else that concerned her. She was additionally instructed to have nothing in the vagina for at least 6 weeks time to include intercourse. She understood her instructions and agrees to follow up as noted above. Discharge medications included only ndwd-pli-musgatg analgesic pain medications as well as continued vitamins as she has opted to breast-feed. Maternal blood type is A+ and rubella status is immune. Initial hemoglobin was 13.4 and hemoglobin on day #1 was 12.1 demonstrating no hemodynamic concerns. Procedures: #1. Artificial rupture of membranes #2. Precipitous normal spontaneous vaginal delivery Patient Condition at Discharge: Good Plan - Discharge Summary New Discharge Prescriptions: No Action Dcd-Xmna-Cqxrc Acid [-U Capsule] 1 cap PO DAILY Discharge Medication List Bjh-Fozc-Opers Acid [-U Capsule] 1 cap PO DAILY 04/02/16 [ History] Follow up Appointment(s)/Referral(s): Lovely Kennedy MD [STAFF PHYSICIAN] - 6 Weeks Discharge Disposition: HOME SELF-CARE
[2017-08-05 16:02] VITALS: BP 111/65; PULSE 80; TEMP 98.2
== END 2017-08-05 17:07 | disposition home or self-care (01) | DRG 775 ==
LOC: FBPOP 12:46 → 4FBP 14:13
PROVIDERS: ADMIT Obstetrics & Gynecology; ATTEND Obstetrics & Gynecology
PROC: 10E0XZZ Delivery of Products of Conception, External Approach (ICD-10-PCS; principal; 2017-08-04)
DX: O62.3 Precipitate labor (principal); Z37.0 Single live birth; Z3A.39 39 weeks gestation of pregnancy; O62.2 Other uterine inertia; O99.52 Diseases of the respiratory system complicating childbirth; J45.909 Unspecified asthma, uncomplicated; Z87.59 Personal history of other complications of pregnancy, childbirth and the puerperium; Z79.899 Other long term (current) drug therapy
CPT/HCPCS: 59025; 85025; 85027; 88307; 99213

== ENCOUNTER 2019-07-21 03:42 | Inpatient (IN) | payer OTHER ==
[2019-07-21] MEDS ORDERED: LIDOCAINE 0.5% (PF) 5 MG/ML (50 ML SDV) SQ PRN (04:48)
[2019-07-21] MEDS ORDERED: OXYTOCIN 10 UNIT/ML 1 ML VIAL IM PRN (04:48)
[2019-07-21] MEDS ORDERED: CARBOPROST TROMETHAMINE 250 MCG/ML 1 ML AMP IM PRN (04:48)
[2019-07-21] MEDS ORDERED: METHYLERGONOVINE 0.2 MG/ML 1 ML AMP IM PRN (04:48)
[2019-07-21] MEDS ORDERED: TERBUTALINE 1 MG/ML VIAL SQ PRN (04:48)
[2019-07-21] MEDS ORDERED: LACTATED RINGERS 1,000 ML IV SCH (05:00)
[2019-07-21 05:55] LABS: Basophils % (A) 0 %; Eosinophils # (A) 0.1 k/uL (0-0.7); Eosinophils % (A) 1 %; HCT 39.4 % (34.0-46.0); HGB 13.2 gm/dL (11.4-16.0); Lymphocytes # (A) 1.2 k/uL (1.0-4.8); Lymphocytes % (A) 9 %; MCH 30.6 pg (25.0-35.0); MCHC 33.5 g/dL (31.0-37.0); MCV 91.3 fL (80.0-100.0); Mean Platelet Volume 10.5; Monocytes # (A) 0.4 k/uL (0-1.0); Monocytes % (A) 3 %; Neutrophils # (A) 11.3 k/uL (1.3-7.7); Neutrophils % (A) 87 %; Platelet Count 150 k/uL (150-450); RBC 4.31 m/uL (3.80-5.40); RDW 13.8 % (11.5-15.5); WBC 13.1 k/uL (3.8-10.6)
[2019-07-21] MEDS ORDERED: OXYTOCIN 30 UNITS/500 ML NS 30 UNIT in SALINE 1 500ML.BAG IV SCH (06:45)
--- NOTE | 2019-07-21 07:25 | P.HPOB ---
History of Present Illness H&P Date: 07/21/19 Chief Complaint: Strong regular contractions This is a 24-year-old white female 3 para 2002 EDC 07/28/2019 at 39 weeks gestation. Patient presents with strong regular uterine contractions. Fetus is been active throughout the . She denies vaginal bleeding or fluid leakage. Past medical history is significant for asthma, uterine atony with hemorrhage requiring blood transfusion, and anemia. Past surgical history D&C for retained products of conception 2017, vaginal wall repair 2017. Current medications albuterol inhaler as needed, vitamin daily. ALLERGIES include Bactrim and Keflex to which reports a rash, penicillin to which she reports an ALLERGY as a child. Seasonal ALLERGIES. Family history significant for hypertension, diabetes, Down syndrome. Obstetric history normal spontaneous vaginal deliveries 2, both with hemorrhage. 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 Obstetric history blood type is A+, rubella status immune. VDRL testing, urine culture, hepatitis B surface antigen, HIV testing, gonorrhea and chlamydia cultures, group B strep culture all negative. One-hour Glucola 110. On exam patient is 5 foot 2 inches, 176 pounds, blood pressure 129/78. The general physical exam is within normal limits. Chest is clear in all smith. heart tones are in the 140s with frequent accelerations consistent with reactive NST. Cervix is 8 cm dilated, 90% effaced, -2 station, vertex presentation. Artificial amniorrhexis reveals clear fluid. Impression: 39 week intrauterine , spontaneous active labor. All signs reassuring. History of hemorrhage. Plan: Analgesic options have been reviewed with the patient at this time and declined. Continue close maternal and surveillance. Anticipate normal spontaneous vaginal delivery. Review of Systems Constitutional: Reports as per HPI Past Medical History Past Medical History: Asthma Additional Past Medical History / Comment(s): D&C, post hemhorrage History of Any Multi-Drug Resistant Organisms: None Reported Past Surgical History: No Surgical Hx Reported Past Anesthesia/Blood Transfusion Reactions: No Reported Reaction Past Psychological History: No Psychological Hx Reported Smoking Status: Never smoker Past Alcohol Use History: None Reported Past Drug Use History: None Reported - Past Family History Father Family Medical History: No Reported History Medications and Allergies Home Medications Medication Instructions Recorded Confirmed Type Lhn-Mzhy-Cjcmx Acid 1 cap PO DAILY 04/02/16 07/21/19 History [-U Capsule] Allergies Allergy/AdvReac Type Severity Reaction Status Date / Time cephalexin [From Keflex] Allergy Rash/Hives Verified 07/21/19 03:46 Penicillins Allergy Rash/Hives Verified 08/04/17 12:47 sulfamethoxazole Allergy Rash/Hives Verified 08/04/17 12:47 [From Bactrim] trimethoprim [From Bactrim] Allergy Rash/Hives Verified 08/04/17 12:47 Exam Vital Signs Temp Pulse Resp BP Pulse Ox 07/21/19 04:48 97.2 F L 96 16 129/78 99 07/21/19 03:48 97.2 F L 96 16 129/78 99 Intake and Output 07/20/19 07/21/19 07/21/19 22:59 06:59 14:59 Intake Total 125 Balance 125 Intake: IV 125 Other: Weight 79.832 kg See dictation HPI please Results Result Diagrams: 07/21/19 05:44 Abnormal Lab Results - Last 24 Hours (Table) 07/21/19 Range/Units 05:44 WBC 13.1 H (3.8-10.6) k/uL Neutrophils # 11.3 H (1.3-7.7) k/uL Assessment and Plan Assessment: 39 week intrauterine , active spontaneous labor, history of hemorrhage. All signs reassuring. Plan: Continue close maternal and surveillance. Anticipate normal spontaneous vaginal delivery. Methergine is in the room to be used as needed. Time with Patient: Less than 30
[2019-07-21] MEDS ORDERED: ZOLPIDEM 5 MG TAB PO PRN (08:38)
[2019-07-21] MEDS ORDERED: diphenhydrAMINE ELIXIR 25 MG/10 ML CUP PO PRN (08:38)
[2019-07-21] MEDS ORDERED: WITCH HAZEL 1 EACH MED..PAD TOPICAL PRN (08:38)
[2019-07-21] MEDS ORDERED: BENZOCAINE/MENTHOL SPRAY 1 GM/SPRAY AEROSOL TOPICAL PRN (08:38)
[2019-07-21] MEDS ORDERED: LANOLIN CREAM 5 GM TUBE TOPICAL PRN (08:38)
[2019-07-21] MEDS ORDERED: diphenhydrAMINE 25 MG CAP PO PRN (08:38)
[2019-07-21] MEDS ORDERED: SIMETHICONE 80 MG CHEWABLE PO PRN (08:38)
[2019-07-21] MEDS ORDERED: HYDROCORTISONE 2.5% RECTAL CREAM 30 GM TUBE RECTAL PRN (08:38)
[2019-07-21] MEDS ORDERED: diphenhydrAMINE 50 MG/ML 1 ML VIAL IVP PRN ×2 (08:38)
[2019-07-21] MEDS ORDERED: diphenhydrAMINE 50 MG CAP PO PRN (08:38)
--- NOTE | 2019-07-21 08:38 | P.PROBDLV ---
Vaginal Delivery Note - . Vaginal Delivery Note: This is a 24-year-old white female 3 para 202 EDC 07/28/2019 at 39 weeks gestation. Patient presented in spontaneous active labor from home. Fetus is been active throughout the . Group B strep cultures negative. Blood type A positive. Rubella status immune. Please see my dictated history and physical for details. Artificial amniorrhexis revealed clear fluid. A small amount of oxytocin augmentation was added. Patient progressed well through the first stage of labor. heart tones were reassuring throughout. She became completely dilated at which time the perineal body was prepped and draped in usual sterile fashion. With excellent maternal expulsive efforts the infant's head delivered occiput posterior. She restituted accordingly. The right or anterior shoulder was the pubic symphysis at which time the oropharynx, nasopharynx, and external nares were all bulb suctioned. Patient was officially delivered of a liveborn female at 0827 hours. Umbilical cord was doubly clamped and ligated, she was handed handed to waiting nurses for evaluation where scores of 8 and 9 at one and 5 minutes respectively were given. Placenta delivered spontaneously, it was inspected and noted to be intact with trivascular cord at 08-9 hours. Vigorously massaged. Careful inspection of the cervix, vagina, perineum, periurethral, and perirectal areas revealed no lacerations and no defects. Total estimated blood loss 200 mL's. All sponge needle and enhancement counts are correct at the end of the procedure. Patient and her are allowed to begin the bonding experience in the LDR.
[2019-07-21] MEDS ORDERED: OXYTOCIN 20 UNITS/1000 ML NS 1,000 ML IV SCH (08:45)
[2019-07-21] MEDS: ACETAMINOPHEN TAB 325 MG TAB PO PRN ×2 (09:11→21:35)
[2019-07-21] MEDS: IBUPROFEN 600 MG TAB PO PRN (16:35)
[2019-07-21] MEDS: SENNOSIDES-DOCUSATE SODIUM 1 EACH TAB PO SCH (20:06)
--- NOTE | 2019-07-22 03:37 | P.DS ---
Providers Date of admission: 07/21/19 04:45 Expected date of discharge: 07/22/19 Attending physician: Lovely Kennedy Primary care physician: Stated None Hospital Course: This is a 24-year-old white female 3 para 2002 EDC 07/28/2019 at 39 weeks gestation. Patient presents with strong regular uterine contractions in spontaneous active labor. remarkable for strep cultures negative, blood type A+, rubella status immune. Please see dictated history and physical for details. Patient went on to swiftly deliver a liveborn female infant vaginally, occiput posterior. Infant weighed 7 lbs. 13 oz. or 3550 g. There was an estimated blood loss of 200 mL's. No perineal lacerations or defects. Please see dictated delivery note for details to This morning the patient is doing well. She is voiding ambulating and passing flatus without difficulty. Vital signs are stable and she is afebrile. Breast- feeding is going well. Pain is well tolerated. Vaginal bleeding is consistent with a moderate., No large blood clots. Patient feels well and is judged to be in excellent condition for discharge home. She will follow-up with me in the office in 6 weeks. I have reminded her no intercourse, tampons or douching. I have given her a prescription for a double electric breast pump to be used as needed. She will continue taking her vitamins daily. She will use [id number] Advil, Motrin or Aleve as needed for pain. We have briefly reviewed options for contraception and we will discuss this further in the office. Assessment: Doing well day #1 Patient Condition at Discharge: Good Plan - Discharge Summary Discharge Rx Participant: No New Discharge Prescriptions: No Action Uvw-Ymxo-Eayas Acid [-U Capsule] 1 cap PO DAILY Discharge Medication List Dtd-Byyz-Hecso Acid [-U Capsule] 1 cap PO DAILY 04/02/16 [His tory] Follow up Appointment(s)/Referral(s): Lovely Kennedy MD [STAFF PHYSICIAN] - 6 Weeks Discharge Disposition: HOME SELF-CARE
[2019-07-22] MEDS: IBUPROFEN 600 MG TAB PO PRN (03:45)
[2019-07-22] MEDS: SENNOSIDES-DOCUSATE SODIUM 1 EACH TAB PO SCH (09:13)
[2019-07-22 09:23] VITALS: BP 114/66; PULSE 89; RESP 20; TEMP 98.8
== END 2019-07-22 10:00 | disposition home or self-care (01) | DRG 807 ==
LOC: FBPOP 03:42 → 4FBP 04:45
PROVIDERS: ADMIT Obstetrics & Gynecology; ATTEND Obstetrics & Gynecology
PROC: 10E0XZZ Delivery of Products of Conception, External Approach (ICD-10-PCS; principal; 2019-07-21)
DX: O99.52 Diseases of the respiratory system complicating childbirth (principal); Z37.0 Single live birth; J45.909 Unspecified asthma, uncomplicated; Z3A.39 39 weeks gestation of pregnancy; Z79.899 Other long term (current) drug therapy; Z88.1 Allergy status to other antibiotic agents; Z88.0 Allergy status to penicillin; Z88.2 Allergy status to sulfonamides; Z82.49 Family history of ischemic heart disease and other diseases of the circulatory system; Z82.79 Family history of other congenital malformations, deformations and chromosomal abnormalities; Z83.3 Family history of diabetes mellitus
CPT/HCPCS: 59025; 85025; 86850; 86900; 86901; 99213

== ENCOUNTER 2023-03-27 02:26 | Inpatient (IN) | payer BC ==
[2023-03-27] MEDS ORDERED: METHYLERGONOVINE 0.2 MG/ML 1 ML AMP IM PRN (03:00)
[2023-03-27] MEDS ORDERED: TRANEXAMIC 1,000 MG/100ML-NACL 1,000 MG in EMPTY BAG 1 BAG IV PRN (03:00)
[2023-03-27] MEDS ORDERED: miSOPROStoL 200 MCG TAB PO PRN (03:00)
[2023-03-27] MEDS ORDERED: OXYTOCIN 10 UNIT/ML 1 ML VIAL IM PRN (03:00)
[2023-03-27] MEDS ORDERED: CARBOPROST TROMETHAMINE 250 MCG/ML 1 ML AMP IM PRN (03:00)
[2023-03-27] MEDS ORDERED: LIDOCAINE 0.5% (PF) 5 MG/ML (50 ML SDV) SQ PRN (03:00)
[2023-03-27] MEDS ORDERED: TERBUTALINE 1 MG/ML VIAL SQ PRN (03:00)
[2023-03-27] MEDS ORDERED: OXYTOCIN 30 UNITS/500 ML NS 30 UNIT in SALINE 1 500ML.BAG IV SCH ×2 (03:00→05:00)
[2023-03-27 03:36] LABS: Basophils % (A) 0 %; Eosinophils % (A) 0 %; HCT 40.9 % (34.0-46.0); HGB 13.8 gm/dL (11.4-16.0); Lymphocytes # (A) 1.6 k/uL (1.0-4.8); Lymphocytes % (A) 14 %; MCH 30.6 pg (25.0-35.0); MCHC 33.6 g/dL (31.0-37.0); Mean Platelet Volume 9.3; Monocytes # (A) 0.5 k/uL (0-1.0); Monocytes % (A) 5 %; Neutrophils # (A) 9.4 k/uL (1.3-7.7); Neutrophils % (A) 80 %; Platelet Count 192 k/uL (150-450); RDW 12.9 % (11.5-15.5); WBC 11.8 k/uL (3.8-10.6)
[2023-03-27] MEDS: LACTATED RINGERS 1,000 ML IV SCH ×2 (03:52→21:14)
--- NOTE | 2023-03-27 04:15 | P.HPOB ---
History of Present Illness H&P Date: 03/27/23 Chief Complaint: IUP at 40 and 0/7 weeks, labor This is a 27-year-old 4 para 3 at 40-0/7 weeks that presents to labor and delivery with complaints of regular painful contractions since 130. She does believe her water broke around that time as well. Patient was noted to be 6 cm upon admission. Patient has been receiving routine care without complication. EDC based on LMP On blood work this patient has a blood type of a positive, rubella status immune, hepatitis B surface antigen negative, HIV negative, RPR is nonreactive, group B strep culture is negative. [facility] [employer] history #1 normal spontaneous vaginal delivery, retained placenta, subsequent D&C followed by ICU admission #2 normal spontaneous vaginal delivery, hemorrhage given Methergine #3 normal spontaneous vaginal delivery #4 current Review of Systems Constitutional: Denies chills, Denies fatigue, Denies fever Ears, nose, mouth and throat: Denies headache Cardiovascular: Reports leg edema Respiratory: Denies dyspnea Gastrointestinal: Denies constipation, Denies diarrhea, Denies nausea, Denies vomiting Genitourinary: Reports Past Medical History Past Medical History: Asthma Additional Past Medical History / Comment(s): D&C, post hemhorrage History of Any Multi-Drug Resistant Organisms: None Reported Past Surgical History: No Surgical Hx Reported Past Anesthesia/Blood Transfusion Reactions: No Reported Reaction Past Psychological History: No Psychological Hx Reported Smoking Status: Never smoker Past Alcohol Use History: None Reported Past Drug Use History: None Reported - Past Family History Father Family Medical History: No Reported History Medications and Allergies Home Medications Medication Instructions Recorded Confirmed Type Kfa-Ocaa-Ikplk Acid 1 cap PO DAILY 04/02/16 03/27/23 History [-U Capsule] Albuterol Inhaler [Ventolin Hfa 1 puff PO DAILY PRN 03/27/23 03/27/23 History Inhaler] Allergies Allergy/AdvReac Type Severity Reaction Status Date / Time cephalexin [From Keflex] Allergy Rash/Hives Verified 03/27/23 02:28 Penicillins Allergy Rash/Hives Verified 03/27/23 02:28 sulfamethoxazole Allergy Rash/Hives Verified 03/27/23 02:28 [From Bactrim] trimethoprim [From Bactrim] Allergy Rash/Hives Verified 03/27/23 02:28 Exam Osteopathic Statement: *. No significant issues noted on an osteopathic structural exam other than those noted in the History and Physical/Consult. Vital Signs Temp Pulse Resp BP Pulse Ox 03/27/23 02:27 98.1 F 87 16 122/75 99 Intake and Output 03/26/23 03/26/23 03/27/23 14:59 22:59 06:59 Other: Weight 68.039 kg Targeted physical exam is performed on this date in general this is a well- nourished well-developed female in obvious labor, heart tones are cat 1 contractions are noted to be q 3 minutes Results Result Diagrams: 03/27/23 03:11 Abnormal Lab Results - Last 24 Hours (Table) 03/27/23 Range/Units 03:11 WBC 11.8 H (3.8-10.6) k/uL Neutrophils # 9.4 H (1.3-7.7) k/uL Assessment and Plan (1) Active labor at term Current Visit: No Status: Acute Code(s): [id number] - SNOMED Code(s): 20547964 Plan: 27 yo at 40 0/7 weeks that presents with complaints of regular painful contractions. Patient was noted to be 6 cm upon admission. Patient is admitted for expectant management. Options for analgesia are discussed and she declines. Anticipate spontaneous vaginal delivery.
[2023-03-27] MEDS ORDERED: diphenhydrAMINE 50 MG CAP PO PRN (04:50)
[2023-03-27] MEDS ORDERED: ZOLPIDEM 5 MG TAB PO PRN (04:50)
[2023-03-27] MEDS ORDERED: SIMETHICONE 80 MG CHEWABLE PO PRN (04:50)
[2023-03-27] MEDS ORDERED: diphenhydrAMINE 50 MG/ML 1 ML VIAL IVP PRN ×2 (04:50)
[2023-03-27] MEDS ORDERED: diphenhydrAMINE 25 MG CAP PO PRN (04:50)
[2023-03-27] MEDS ORDERED: BENZOCAINE/MENTHOL SPRAY 1 GM/SPRAY AEROSOL TOPICAL PRN (04:50)
[2023-03-27] MEDS ORDERED: HYDROCORTISONE 2.5% RECTAL CREAM 30 GM TUBE RECTAL PRN (04:50)
[2023-03-27] MEDS ORDERED: LANOLIN CREAM 5 GM TUBE TOPICAL PRN (04:50)
--- NOTE | 2023-03-27 04:50 | P.PROBDLV ---
Vaginal Delivery Note - . Vaginal Delivery Note: This is a 27-year-old at 40-0/7 weeks that presented to labor and delivery with complaints of regular painful contractions. Patient was noted to be 6 cm upon admission. Patient was admitted and progressed through labor eventually progressing to complete dilation. Once patient was noted to be completely dilated she was placed in a modified lithotomy position, with excellent maternal effort patient had a normal spontaneous vaginal delivery of a viable female infant at 440. After 2-minute delay the umbilical cord was doubly clamped and cut and the placenta was delivered spontaneously intact with a three-vessel cord being noted. Inspection of the patient's vaginal vault and the lacerations were appreciated. weight is pending as the infant remains on the maternal chest. Estimated blood loss 100 cc. Patient and infant tolerated delivery well and are resting comfortably.
[2023-03-27] MEDS: IBUPROFEN 600 MG TAB PO SCH ×4 (05:59→21:38)
[2023-03-27] MEDS: SENNOSIDES-DOCUSATE SODIUM 1 EACH TAB PO SCH ×2 (08:22→21:13)
[2023-03-27] MEDS ORDERED: PRENATAL VIT-IRON-FOLIC ACID 1 EACH TABLET PO SCH (09:00)
[2023-03-27] MEDS: ACETAMINOPHEN TAB 325 MG TAB PO PRN ×2 (18:23→23:43)
[2023-03-27] MEDS ORDERED: IBUPROFEN 600 MG TAB PO PRN (21:39)
[2023-03-28 08:19] VITALS: BP 108/69; PULSE 86; RESP 14; TEMP 98.2
--- NOTE | 2023-03-28 08:44 | P.DS ---
Providers Date of admission: 03/27/23 02:48 Expected date of discharge: 03/28/23 Attending physician: Beto Hoyos Primary care physician: Stated None - Discharge Diagnosis(es) (1) Normal spontaneous vaginal delivery Current Visit: Yes Status: Acute Hospital Course: The patient is a 27-year-old 4 para 3003 admitted at 40-0/7 weeks by good dating parameters. She presents labor and delivery in active labor with all signs reassuring, category 1 heart rate tracing. Her has been uncomplicated and group B strep status is negative. On labor and delivery, she progressed spontaneously to complete and then pushed to a normal spontaneous vaginal delivery of a viable 7 lbs. 3 oz. baby girl with Apgars of 8 at 1 minute and 9 at 5 minutes. Her course was unremarkable with vital signs remaining stable and her temperature was afebrile throughout. She was deemed stable for discharge on day #1 and was discharged home to follow-up in the office in 6 weeks' time routinely. Discharge instructions included calling for any significantly increased bleeding or foul-smelling lochia, significantly increased fever abdominal pain, perineal complaints, breast complaints, or anything also concerned her. She was additionally instructed to have nothing in the vagina for at least 6 weeks time to include intercourse. She understood her instructions and agrees to follow up as noted above. Discharge medications included continued vitamins as she has opted to breast-feed. She was otherwise to use ekpn-nav-aersudg analgesic pain medications as needed. Maternal blood type is A+ and rubella status is immune. Procedures: #1. Normal spontaneous vaginal delivery Patient Condition at Discharge: Stable Plan - Discharge Summary New Discharge Prescriptions: No Action Vya-Ccof-Zwatl Acid [-U Capsule] 1 cap PO DAILY Albuterol Inhaler [Ventolin Hfa Inhaler] 1 puff PO DAILY PRN PRN Reason: Shortness Of Breath Discharge Medication List Qvc-Womv-Ghlhm Acid [-U Capsule] 1 cap PO DAILY 04/02/16 [History] Albuterol Inhaler [Ventolin Hfa Inhaler] 1 puff PO DAILY PRN 03/27/23 [History] Follow up Appointment(s)/Referral(s): Beto Hoyos MD [STAFF PHYSICIAN] - 6 Weeks Patient Instructions/Handouts: Vaginal Delivery (DC) Discharge Disposition: HOME SELF-CARE
[2023-03-28] MEDS: SENNOSIDES-DOCUSATE SODIUM 1 EACH TAB PO SCH (11:08)
== END 2023-03-28 10:15 | disposition home or self-care (01) | DRG 807 ==
LOC: FBPOP 02:26 → 4FBP 02:48
PROVIDERS: ADMIT Obstetrics & Gynecology Obstetrics; ATTEND Obstetrics & Gynecology
PROC: 10E0XZZ Delivery of Products of Conception, External Approach (ICD-10-PCS; principal; 2023-03-27)
DX: O99.52 Diseases of the respiratory system complicating childbirth (principal); J45.909 Unspecified asthma, uncomplicated; Z28.310 Unvaccinated for COVID-19; Z79.51 Long term (current) use of inhaled steroids; Z87.59 Personal history of other complications of pregnancy, childbirth and the puerperium; Z79.899 Other long term (current) drug therapy; Z88.0 Allergy status to penicillin; Z88.2 Allergy status to sulfonamides; Z88.1 Allergy status to other antibiotic agents; Z3A.40 40 weeks gestation of pregnancy; Z37.0 Single live birth
CPT/HCPCS: 59025; 84112; 85025; 86850; 86900; 86901; 99213